=== PATIENT | female | born 1965 | race Caucasian/White ===

== ENCOUNTER 2016-07-09 20:16 | Emergency (ER) | payer BC ==
[~2016-07-09] VITALS: Ht 165.1 cm; Wt 150.0 kg
[~2016-07-09 20:16] MED LIST: ADVIN25/60 INH; CALC-335 PO; CETI10CA PO; CHOL2000 PO; CYAN100020 PO; CYM/30 PO; CYTM5 PO; DIPH50TA10 PO; DOCU-94 PO; DULO60CA44 PO; FLUT0.0529 NAE; GLUC500C67 PO; INSUINJ12 SC; LEVOIUD INT UTER; LIRA18IN SC; LISI20TA3 PO; NAPR220T40 PO; PANT40TA PO; PRED20TA PO; SUMA50TA15 PO; VSC/10 PO; XPNIN INH
[2016-07-09 20:40] VITALS: TEMP 37.4; Ht 165.1 cm; Wt 150.0 kg
[2016-07-09] MEDS ORDERED: AMLO2.5T PO (21:03)
[2016-07-09] MEDS ORDERED: INSU3INJ3 SQ (21:05)
[2016-07-09] MEDS ORDERED: ONDANSETRON INJ 2 MG/ML 2 ML VIAL IV STA (21:53)
[2016-07-09] MEDS ORDERED: MoRPHine SULFATE 4 MG/ML 1 ML CARP\\VIAL IV STA (21:53)
--- NOTE | 2016-07-09 22:15 | DIAGNOSTIC IMAGING REPORT ---
CHEST ONE VIEW PORTABLE CLINICAL HISTORY: Chest pain. Hypertension. COMPARISON STUDY: Chest radiograph February 17, 2016 per FINDINGS: Lung volumes are normal. There is no pneumothorax or pleural effusion. There is no consolidation or evidence of pulmonary edema. Borderline cardiomegaly is unchanged. IMPRESSION: No acute cardiopulmonary findings. Electronically signed by: Js Li M.D. 07/09/2016 10:13 PM Dictated Date/Time: 07/09/2016 10:13 PM
[2016-07-09 22:19] VITALS: O2SAT 94
[2016-07-09 22:38] LABS: BASO % 0.3 %; BASO ABS # 0.03 K/uL (0-0.2); COMPLETE YES; EOS % 1.5 %; HEMATOCRIT 39.9 % (37-47); IG% 0.1 %; LYMPH % 31.7 %; LYMPH ABS # 2.89 K/uL (1.2-3.4); MEAN CELL VOLUME 81.6 fL (80-100); MEAN CORPUSCULAR HGB CONC 33.1 g/dl (32-36); MEAN PLATELET VOLUME 9.7 fL (7.4-10.4); MONO % 6.7 %; NEUT % 59.7 %; PLATELET COUNT 408 K/uL (130-400); RED BLOOD COUNT 4.89 M/uL (4.2-5.4); WHITE BLOOD COUNT 9.12 K/uL (4.8-10.8)
[2016-07-09 22:59] LABS: ALT/SGPT 22 U/L (12-78); AST/SGOT 16 U/L (15-37); BLOOD UREA NITROGEN 10 mg/dl (7-18); BUN/CREATININE RATIO 11.3 (10-20); CALCIUM 8.8 mg/dl (8.5-10.1); CARBON DIOXIDE 28 mmol/L (21-32); CHLORIDE 107 mmol/L (98-107); CREATININE 0.87 mg/dl (0.60-1.20); GLUCOSE 137 mg/dl (70-99); SODIUM 143 mmol/L (136-145)
[2016-07-09 23:04] LABS: ALKALINE PHOSPHATASE 111 U/L (45-117); CKMB/CK RATIO 0.9 (0-3.0)
[2016-07-09] MEDS ORDERED: OPTIRAY 320 IV PRN (23:15)
[2016-07-10] MEDS ORDERED: LORAZEPAM 2 MG/ML 1 ML VIAL IV STA (00:09)
[2016-07-10] MEDS ORDERED: OXYCODONE IR HOME PACK PO ONE (01:30)
[2016-07-10 01:50] VITALS: BP 136/77; PULSE 96; O2SAT 93
--- NOTE | 2016-07-10 01:57 | EMERGENCY ROOM VISIT NOTE ---
History First contact with patient: 21:43 Chief Complaint: BACK PAIN Stated Complaint: HIGH BLOOD PRESSURE, BACK PAIN History of Present Illness The patient is a 51 year old female who presents to the Emergency Room with complaints of upper back pain that radiates around to her chest for the past day that started at 4:30pm today that is worse with movement and better with rest. She describes the pain as aching, ranging in severity 7 out of 10. No injury to the area. no current rash. Patient has had shingles to this same region before. Pain feels somewhat similar. No prior heart disease that she knows of. No stress test or echocardiogram. Patient has a history low back pain but nothing this. Patient denies abdominal pain, leg pain and numbness or tingling, recent travel, tobacco use, history PE, DVT, heart disease, control, hormone replacement, family history of blood clots, fever, chills, cough, congestion, IV drug abuse. Blood sugars normally run around 135 per patient. Her grandfather had heart disease in his late 60s. Review of Systems See HPI for pertinent positives & negatives. A total of 10 systems reviewed and were otherwise negative. Past Medical/Surgical History Medical Problems: (1) Asthma, Unspecified (2) Benign Hypertension (3) Diab Catia Wo Compl, Type Ii Or Unspec Type, Not Uncntrld (4) GERD (gastroesophageal reflux disease) Family History Cancer Diabetes mellitus Heart disease Hypertension Seizures Social History Smoking Status: Never Smoker Alcohol Use: none Drug Use: none Marital Status: Housing Status: lives with family Occupation Status: employed Current/Historical Medications Scheduled Amlodipine Besylate (Norvasc), 2.5 MG PO DAILY Calcium Citrate-Vitamin D (Citracal Petites/Vitamin), 1 TAB PO BID Cetirizine Hcl (Zyrtec Allergy), 10 MG PO HS Cholecalciferol (Vitamin D3), 2,000 UNITS PO DAILY Cyanocobalamin (Vitamin B12), 1,000 MCG PO BID Duloxetine Hcl (Cymbalta), 60 MG PO QAM Duloxetine Hcl (Cymbalta), 30 MG PO QAM Fluticasone Prop/Salmeterol (Advair Diskus 250/50 60 Dose), 1 PUFFS INH BID Fluticasone Propionate (Nasal) (Flonase), 1 SPRY HERRERA BID Glucosamine-Chondroitin (Cosamin Ds), 1 TAB PO QAM Insulin Detemir (Levemir Flextouch), 30 UNITS SQ HS Levonorgestrel (Iud) (Mirena), INT UTER UD Liothyronine Sodium (Liothyronine Sodium), 20 MCG PO QAM Liraglutide (Victoza), 1.8 ML SC HS Naproxen Sodium (Aleve), 3 TAB PO DAILY Pantoprazole Sodium (Protonix), 40 MG PO HS Solifenacin Succinate (Vesicare), 10 MG PO QAM Sumatriptan Succinate (Imitrex), 50 MG PO PRN Scheduled PRN Diphenhydramine Hcl (Sleep) (Diphenhydramine Hcl), 1 DOSE PO UD PRN for ALLERGIC REACTION Docusate Sodium (Colace), 200 MG PO BID PRN for Constipation Levalbuterol Tartrate (Xopenex Hfa), 1 PUFF INH DAILY PRN for Shortness of Breath Allergies Coded Allergies: Lisinopril (Verified Allergy, Severe, ANGIOEDEMA, 07/09/16) Amoxicillin (Verified Allergy, Intermediate, HIVES, 08/21/15) Metformin (Verified Allergy, Intermediate, HIVES, 08/21/15) Sulfa Antibiotics (Unverified Allergy, Unknown, HIVES, 02/17/16) Physical Exam Vital Signs Date Time Temp Pulse Resp B/P Pulse Ox O2 Delivery O2 Flow Rate FiO2 07/10/16 01:07 92 18 135/80 93 Room Air 07/10/16 00:17 97 18 125/73 96 Room Air 07/09/16 23:43 96 18 125/74 95 Room Air 07/09/16 22:35 92 18 139/75 93 07/09/16 22:20 89 18 148/82 93 Room Air 07/09/16 22:19 94 Room Air 07/09/16 22:19 93 Room Air 07/09/16 21:37 93 07/09/16 21:26 98 20 165/99 96 Room Air 07/09/16 20:40 37.4 108 18 137/75 94 Room Air Physical Exam VITALS: Vitals are noted on the nurse's note and reviewed by myself. Vital signs stable. GENERAL: Pleasant female anxious-appearing, in no acute distress, nondiaphoretic , well-developed well-nourished. SKIN: The skin was without rashes, erythema, edema, or bruising. There is no tenting of the skin. Capillary reflex less than 2 seconds. HEAD: Normocephalic atraumatic. EARS: External auditory canals clear, tympanic membranes pearly waller without erythema or effusion bilaterally. EYES: Pupils equal round and reactive to light and accommodation. Conjunctivae without injection, sclerae without icterus. Extraocular movements intact. NOSE: Patent, turbinates without inflammation or discharge. MOUTH: Mucous membranes moist. Pharynx without erythema or exudate. Uvula midline. Airway patent. Tongue does not deviate. NECK: Supple without nuchal rigidity. No lymphadenopathy. No thyromegaly. Cervical spine is nontender. No JVD. HEART: Regular rate and rhythm without murmurs gallops or rubs. LUNGS: Clear to auscultation bilaterally without wheezes, rales or rhonchi. No dullness to percussion. No retractions or accessory muscle use. ABDOMEN: Positive bowel sounds x 4. Normal tympanic percussion. Soft, protuberant, obese, nontender, without masses or organomegaly. Sawant sign negative. No guarding or rebound tenderness. MUSCULOSKELETAL: No muscle atrophy, erythema, noted. No calf tenderness. Thoracic tenderness over T8 and 9 easily reproducing symptoms without rash. No lumbar tenderness. NEURO: Patient was alert and oriented to person place and time. Normal sensation to light and sharp touch. No focal neurological deficits. Medical Decision & Procedures Laboratory Results 07/09/16 22:10 Red Blood Count 4.89, Mean Corpuscular Volume 81.6, Mean Corpuscular Hemoglobin 27.0, Mean Corpuscular Hemoglobin Concent 33.1, Mean Platelet Volume 9.7, Neutrophils (%) (Auto) 59.7, Lymphocytes (%) (Auto) 31.7, Monocytes (%) (Auto) 6.7, Eosinophils (%) (Auto) 1.5, Basophils (%) (Auto) 0.3, Neutrophils # (Auto) 5.44, Lymphocytes # (Auto) 2.89, Monocytes # (Auto) 0.61, Eosinophils # (Auto) 0.14, Basophils # (Auto) 0.03 07/09/16 22:10 Test 07/09/16 22:10 White Blood Count 9.12 K/uL (4.8-10.8) Red Blood Count 4.89 M/uL (4.2-5.4) Hemoglobin 13.2 g/dL (12.0-16.0) Hematocrit 39.9 % (37-47) Mean Corpuscular Volume 81.6 fL (80-100) Mean Corpuscular Hemoglobin 27.0 pg (25-34) Mean Corpuscular Hemoglobin Concent 33.1 g/dl (32-36) Platelet Count 408 K/uL (130-400) Mean Platelet Volume 9.7 fL (7.4-10.4) Neutrophils (%) (Auto) 59.7 % Lymphocytes (%) (Auto) 31.7 % Monocytes (%) (Auto) 6.7 % Eosinophils (%) (Auto) 1.5 % Basophils (%) (Auto) 0.3 % Neutrophils # (Auto) 5.44 K/uL (1.4-6.5) Lymphocytes # (Auto) 2.89 K/uL (1.2-3.4) Monocytes # (Auto) 0.61 K/uL (0.11-0.59) Eosinophils # (Auto) 0.14 K/uL (0-0.5) Basophils # (Auto) 0.03 K/uL (0-0.2) RDW Standard Deviation 48.0 fL (36.4-46.3) RDW Coefficient of Variation 15.9 % (11.5-14.5) Immature Granulocyte % (Auto) 0.1 % Immature Granulocyte # (Auto) 0.01 K/uL (0.00-0.02) D-Dimer 650 ug/L FEU (0-500) Anion Gap 8.0 mmol/L (3-11) Est Creatinine Clear Calc Drug Dose 113.8 ml/min Estimated GFR () 89.4 Estimated GFR (Non- 77.1 BUN/Creatinine Ratio 11.3 (10-20) Calcium Level 8.8 mg/dl (8.5-10.1) Total Bilirubin 0.4 mg/dl (0.2-1) Direct Bilirubin < 0.1 mg/dl (0-0.2) Aspartate Amino Transf (AST/SGOT) 16 U/L (15-37) Alanine Aminotransferase (ALT/SGPT) 22 U/L (12-78) Alkaline Phosphatase 111 U/L (45-117) Total Creatine Kinase 57 U/L (26-192) Creatine Kinase MB 0.5 ng/ml (0.5-3.6) Creatine Kinase MB Ratio 0.9 (0-3.0) Troponin I < 0.015 ng/ml (0-0.045) Total Protein 7.5 gm/dl (6.4-8.2) Albumin 3.5 gm/dl (3.4-5.0) Lipase 257 U/L (73-393) Medications Administered Medications (Trade) Dose Ordered Sig/Alyse Route Start Time Stop Time Status Last Admin Dose Admin Morphine Sulfate (MoRPHine SULFATE INJ) 4 mg NOW STAT IV 07/09/16 21:53 07/09/16 21:55 DC 07/09/16 22:22 4 MG Ondansetron HCl (Zofran Inj) 4 mg NOW STAT IV 07/09/16 21:53 07/09/16 21:55 DC 07/09/16 22:21 4 MG Lorazepam (Ativan Inj) 1 mg NOW STAT IV 07/10/16 00:09 07/10/16 00:10 DC 07/10/16 00:19 1 MG ED Course Prior records/ancillary studies reviewed. Triage Nursing notes reviewed. Additional history obtained from family. The patient's history was concerning for back/chest pain. Differential diagnosis: Etiologies such as cardiac ischemia, shingles, back pain, discitis, cancer, aortic dissection, pulmonary embolism, pneumonia, pneumothorax, musculoskeletal , infections, pericarditis, myocarditis, esophageal rupture, gastrointestinal, as well as others were entertained. Physical examination: As above. ER treatment provided: Morphine, Zofran, IV fluids On reassessment the patient felt better. Diagnostic interpretation by me: The electrocardiogram was negative for pathologic change. Normal sinus, normal intervals, no acute ST-T wave changes. Impression normal sinus rhythm interpreted by myself The labs revealed 2 negative troponins 2 hours apart. Mildly elevated d-dimer Imaging studies: CTA CHEST: No evidence of pulmonary embolism. No aortic aneurysm or dissection. Lungs are clear aside from mild platelike atelectasis in lingula and right middle lobe Post cholecystectomy. Incompletely imaged right renal hypodensity, likely cyst. CT T SPINE: No fracture or subluxation. No evidence of canal or foraminal stenosis. Findings consistent with hemangioma in L1 vertebral body Radiologist: Mateo Rojas MD Exam and history seem consistent with back pain most likely muscular in nature. Patient had 2 troponins 2 hours apart that were negative. Normal EKG. Negative CTA. Patient was offered admission for cardiac rule out and declined. I feel this is reasonable. She is strongly encouraged to the family care doctor for a stress test within 2 weeks. She was also informed if she develops the shingles rash to see the family care Dr. for medications if needed. She is advised to monitor her blood sugars. She was advised to return to the ER immediately for chest pain, difficulty breathing, worsening signs or symptoms or as needed. By the evaluation outlined above emergent etiologies such as cardiac ischemia, aortic dissection, pulmonary embolism, pneumonia, pneumothorax, infections, pericarditis, myocarditis, gastrointestinal, as well as others were deemed relatively unlikely. The pt informed about the findings as listed above. All questions were answered and pleased with the treatment. Return instructions were outlined and the patient was discharged in stable condition. Referral: The patient was referred back to primary care physician for follow-up in 2 to 3 days for a recheck of the current condition. case reviewed with my Attending Medical Decision As above Impression Primary Impression: Mid-back pain, acute Departure Information Dispostion Home / Self-Care Condition GOOD Forms HOME CARE DOCUMENTATION FORM, Work Instructions, Return To Work: 1 day IMPORTANT VISIT INFORMATION Patient Instructions Chest Pain - [facility], Back Pain - [facility], [facility] Additional Instructions Recommend outpatient stress test within 2 weeks. If you develop a shingles rash, notify your family care doctor. Ibuprofen(Motrin, Advil) may be used for fever or pain. Use 600mg every six hours as needed. Take with food. Avoid using more than 2400mg in a 24 hour period. Do not use 2400mg per day for more than three consecutive days without physician direction. Prolonged inappropriate use can lead to stomach upset or ulcers. (AND/OR) Acetaminophen(Tylenol) may be used for fever or pain. Use 1000mg every six hours as needed. Avoid using more than 3000mg in a 24 hour period. Rest and drink plenty of fluids as tolerated. Continue current medications. Avoid strenuous activities and anything that worsens your pain. Resume normal activities once your symptoms resolve. Return to the ER immediately for worsening or persistent chest pain, abdominal pain, vomiting, fevers, chest pains, difficulty breathing, worsening of your condition, or as needed. Follow up with your primary physician in 2-3 days for a recheck of your current condition. Work Instructions Return To Work: 1 day
--- NOTE | 2016-07-10 07:20 | DIAGNOSTIC IMAGING REPORT ---
THORACIC SPINE CT CT DOSE: 0.00 mGy.cm HISTORY: severe mid back pain and sob, +ddimer TECHNIQUE: Multiaxial CT images of the thoracic spine were performed and reformatted in the sagittal and coronal plane without the use of contrast. COMPARISON: None. FINDINGS: No fractures. No subluxation. Paraspinal soft tissues are unremarkable. Disc spaces are preserved for age. No central canal or neural foraminal narrowing. IMPRESSION: No fractures within the thoracic spine. Electronically signed by: Mesfin Pearce M.D. 07/10/2016 7:18 AM Dictated Date/Time: 07/10/2016 7:16 AM
--- NOTE | 2016-07-10 07:52 | DIAGNOSTIC IMAGING REPORT ---
CT ANGIOGRAM OF THE CHEST CLINICAL HISTORY: Atypical chest pain. Dyspnea. COMPARISON STUDY: Chest x-ray dated 07/09/2016. TECHNIQUE: Following the IV administration of 103 cc of Optiray 320, CT angiogram of the chest was performed from the upper abdomen to the thoracic inlet utilizing the pulmonary embolus protocol. Images are reviewed in the axial, sagittal, and coronal planes. 3-D MIPS images are created and assessed. IV contrast was administered without complication. The examination is degraded by large body habitus, and by streak artifact from the body wall abutting the CT gantry. CT DOSE: 856.19 mGy.cm FINDINGS: Thyroid: Mildly atrophic. Thoracic aorta: The thoracic aorta is normal in caliber and demonstrates standard 3-vessel arch anatomy. No dissection is seen. Pulmonary vasculature: The pulmonary trunk is normal in caliber. There are no filling defects identified in main, lobar, or segmental pulmonary branches to suggest pulmonary embolus. Heart: The heart is mildly enlarged and without pericardial effusion. Lungs and pleural spaces: The lungs and pleural spaces are clear. The trachea and central airways are patent. Mediastinum: There is no mediastinal lymphadenopathy. Inés: Clear. Axillae: There is no axillary lymphadenopathy. Upper abdomen: Cholecystectomy clips are noted. There is a small hiatal hernia. The liver appears steatotic. A right renal cyst is noted. Skeletal structures: No lytic or blastic bony lesions are seen. A hemangioma is noted in the body of L1. Soft tissues: There is a 1.5 cm sebaceous cyst present in the right upper back. IMPRESSION: 1. There is no evidence of pulmonary embolus in the main, lobar, or segmental pulmonary arteries. 2. The lungs are clear. 3. Mild cardiac enlargement. 4. Hepatic steatosis. Electronically signed by: Tyler Wilkins M.D. 07/10/2016 7:51 AM Dictated Date/Time: 07/10/2016 7:47 AM
== END 2016-07-10 01:50 | disposition home or self-care (01) ==
LOC: C.EDB 20:17
DX: M54.9 Dorsalgia, unspecified (principal); J45.909 Unspecified asthma, uncomplicated; I10 Essential (primary) hypertension; E11.9 Type 2 diabetes mellitus without complications; K21.9 Gastro-esophageal reflux disease without esophagitis

== ENCOUNTER → 2016-08-22 | Outpatient (CLI) | payer BC ==
[~2016-08-22] MED LIST changes: +AMLO2.5T PO; +INSU3INJ3 SQ; -INSUINJ12 SC; -LISI20TA3 PO; -PRED20TA PO
--- NOTE | 2016-08-22 18:58 | DIAGNOSTIC IMAGING REPORT ---
L-SPINE MIN 4 VIEWS ROUTINE CLINICAL HISTORY: Lower back pain. COMPARISON: Lumbar spine radiographs July 09, 2013. FINDINGS: There are cholecystectomy clips. Alignment of lumbar spine is anatomic. Vertebral body heights are maintained. There is no fracture or suspicious lesion. There is mild disc space narrowing at L5-S1. There is mild endplate osteophytosis and facet arthrosis. IMPRESSION: 1. No acute lumbar spine fracture or subluxation. 2. Mild multilevel degenerative disc disease and facet arthrosis of the lumbar spine. Electronically signed by: Js Li M.D. 08/22/2016 6:56 PM Dictated Date/Time: 08/22/2016 6:55 PM
--- NOTE | 2016-08-22 18:59 | DIAGNOSTIC IMAGING REPORT ---
RENAL ULTRASOUND CLINICAL HISTORY: Lower back pain. COMPARISON STUDY: CT of the abdomen and pelvis August 04, 2015. TECHNIQUE: Sonography of the kidneys and the urinary bladder was performed. FINDINGS: This exam is compromised by suboptimal penetration. The right kidney measures 10.9 x 5.2 x 5.2 cm and the left kidney measures 10 x 5.2 x 5 cm. There is no hydronephrosis. No calculi or masses are identified although sensitivity is diminished on this exam. The bladder was unremarkable. Both ureteral jets were identified. IMPRESSION: 1. Unremarkable sonographic appearance of the kidneys. No hydronephrosis. 2. Study compromised by suboptimal penetration. Electronically signed by: Js Li M.D. 08/22/2016 6:58 PM Dictated Date/Time: 08/22/2016 6:56 PM
--- NOTE | 2016-08-22 19:00 | DIAGNOSTIC IMAGING REPORT ---
SI JOINTS 3 OR MORE VIEWS CLINICAL HISTORY: Low back pain. COMPARISON STUDY: CT of the abdomen and pelvis August 04, 2015. FINDINGS: The sacroiliac joints are intact without evidence for ankylosis. There is no fracture or suspicious lesion within visualized skeletal structures. An intrauterine device is incidentally noted. There is mild arthritis of the sacroiliac joints. 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 Electronically signed by: Js Li M.D. 08/22/2016 6:58 PM Dictated Date/Time: 08/22/2016 6:58 PM
[2016-08-22 19:14] LABS: MEAN CELL VOLUME 82.7 fL (80-100); MEAN CORPUSCULAR HGB CONC 32.6 g/dl (32-36); MEAN PLATELET VOLUME 9.8 fL (7.4-10.4); PLATELET COUNT 372 K/uL (130-400); RED BLOOD COUNT 5.08 M/uL (4.2-5.4); WHITE BLOOD COUNT 11.06 K/uL (4.8-10.8)
[2016-08-22 19:31] LABS: ALT/SGPT 26 U/L (12-78); BLOOD UREA NITROGEN 16 mg/dl (7-18); CALCIUM 9.1 mg/dl (8.5-10.1); CARBON DIOXIDE 29 mmol/L (21-32); CHLORIDE 104 mmol/L (98-107); CREATININE 0.91 mg/dl (0.60-1.20); GLUCOSE 218 mg/dl (70-99); POTASSIUM 3.7 mmol/L (3.5-5.1); SODIUM 140 mmol/L (136-145)
[2016-08-22 19:34] LABS: ALB/GLOB RATIO 0.9 (0.9-2); ALKALINE PHOSPHATASE 115 U/L (45-117); AST/SGOT 18 U/L (15-37)
== END | disposition home or self-care (01) ==
LOC: C.ULTR 17:53
PROVIDERS: ATTEND Family Medicine
DX: M54.5 Low back pain (principal); Z87.442 Personal history of urinary calculi; M51.36 Other intervertebral disc degeneration, lumbar region

== ENCOUNTER 2017-05-03 14:57 | Emergency (ER) | payer BC ==
[~2017-05-03] VITALS: Ht 165.1 cm; Wt 147.7 kg
[2017-05-03 15:01] VITALS: TEMP 37; Ht 165.1 cm; Wt 147.7 kg
[2017-05-03] MEDS ORDERED: KETOROLAC TROMETHAMINE 30 MG/ML VIAL IV STA (15:35)
[2017-05-03 15:37] VITALS: O2SAT 96
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
[2017-05-03 16:29] LABS: BASO % 0.2 %; BASO ABS # 0.02 K/uL (0-0.2); COMPLETE YES; EOS % 0.5 %; HEMATOCRIT 40.9 % (37-47); IG% 0.2 %; LYMPH % 22.5 %; LYMPH ABS # 1.93 K/uL (1.2-3.4); MEAN CELL VOLUME 87.4 fL (80-100); MEAN CORPUSCULAR HEMOGLOBIN 28.6 pg (25-34); MEAN CORPUSCULAR HGB CONC 32.8 g/dl (32-36); MEAN PLATELET VOLUME 9.4 fL (7.4-10.4); MONO % 6.4 %; NEUT % 70.2 %; PLATELET COUNT 324 K/uL (130-400); RED BLOOD COUNT 4.68 M/uL (4.2-5.4); WHITE BLOOD COUNT 8.57 K/uL (4.8-10.8)
--- NOTE | 2017-05-03 16:43 | DIAGNOSTIC IMAGING REPORT ---
CHEST ONE VIEW PORTABLE CLINICAL HISTORY: Asthma. COMPARISON STUDY: Chest radiograph July 09, [address] July 10, 2016. FINDINGS: Lung volumes are normal. No pneumothorax or pleural effusion is present. There is no consolidation or evidence of pulmonary edema. Cardiomediastinal silhouette is stable. Appearance of the chest is unchanged. IMPRESSION: No acute cardiopulmonary findings. Electronically signed by: Js Li M.D. 05/03/2017 4:42 PM Dictated Date/Time: 05/03/2017 4:41 PM
[2017-05-03 16:47] LABS: ALT/SGPT 22 U/L (12-78); AST/SGOT 13 U/L (15-37); BLOOD UREA NITROGEN 9 mg/dl (7-18); BUN/CREATININE RATIO 11.2 (10-20); CALCIUM 8.4 mg/dl (8.5-10.1); CARBON DIOXIDE 28 mmol/L (21-32); CHLORIDE 107 mmol/L (98-107); CREATININE 0.76 mg/dl (0.60-1.20); GLUCOSE 159 mg/dl (70-99); POTASSIUM 3.7 mmol/L (3.5-5.1); SODIUM 139 mmol/L (136-145)
[2017-05-03 16:50] LABS: ALKALINE PHOSPHATASE 106 U/L (45-117)
[2017-05-03] MEDS ORDERED: FLUT0.15 NAE (17:17)
[2017-05-03] MEDS ORDERED: LEVA45AE INH (17:18)
[2017-05-03 17:43] VITALS: BP 148/80
[2017-05-03 17:59] VITALS: PULSE 90; O2SAT 96
== END 2017-05-03 18:00 | disposition home or self-care (01) ==
LOC: C.EDB 14:58 → C.EDC 18:00
DX: T59.891A Toxic effect of other specified gases, fumes and vapors, accidental (unintentional), initial encounter (principal); J45.909 Unspecified asthma, uncomplicated; I10 Essential (primary) hypertension; E11.9 Type 2 diabetes mellitus without complications; E07.9 Disorder of thyroid, unspecified; Z97.5 Presence of (intrauterine) contraceptive device

== ENCOUNTER → 2017-07-09 | Outpatient (CLI) | payer BC ==
[~2017-07-09] MED LIST changes: -FLUT0.0529 NAE; +FLUT0.15 NAE; +LEVA45AE INH; +LEVO1IUD2 INT UTER; -LEVOIUD INT UTER; -XPNIN INH
== END | disposition home or self-care (01) ==
LOC: C.RDSM 14:00
PROVIDERS: ATTEND Physical Medicine & Rehabilitation Sports Medicine
DX: Z96.659 Presence of unspecified artificial knee joint (principal); M17.10 Unilateral primary osteoarthritis, unspecified knee; M25.561 Pain in right knee; M25.562 Pain in left knee

== ENCOUNTER → 2017-08-25 | Outpatient (CLI) | payer BC ==
[~2017-08-25] MED LIST changes: +AMLO5TAB4 PO; +ONDA4TAB10 SL
--- NOTE | 2017-08-26 07:47 | MAMMOGRAPHY REPORT ---
BILATERAL DIGITAL SCREENING MAMMOGRAM TOMOSYNTHESIS WITH CAD: 08/25/2017 CLINICAL HISTORY: Routine screening. Patient has no complaints. TECHNIQUE: Breast tomosynthesis in addition to standard 2D mammography was performed. Current study was also evaluated with a Computer Aided Detection (CAD) system. COMPARISON: No prior exams were available for comparison. BREAST COMPOSITION: There are scattered areas of fibroglandular density in both breasts. FINDINGS: There are multiple bilateral circumscribed subcentimeter masses scattered in the breasts, w hich is a typically benign mammographic pattern. No suspicious spiculated or irregular mass, archite ctural distortion, asymmetry or cluster of microcalcifications is seen. IMPRESSION: ACR BI-RADS CATEGORY 1: NEGATIVE There is no mammographic evidence of malignancy. Prior outside mammograms are currently being reques loretta and if obtained they will be reviewed, compared to the current exam to assess for any more subtle changes, and an addendum will be made to this report. Otherwise, a 1 year screening mammogram is re commended. The patient will receive written notification of the results. Approximately 10% of breast cancers are not detected with mammography. A negative mammographic report should not delay biopsy if a clinically suggestive mass is present. Marichuy Houser M.D. ay/:08/25/2017 15:01:35 Ehr Trainer: Nelly Beckman, [facility] letter sent: Normal 1/2 BI-RADS Code: ACR BI-RADS Category 1: Negative
== END | disposition home or self-care (01) ==
LOC: C.MAMM 13:53
PROVIDERS: ATTEND Family Medicine
DX: Z12.31 Encounter for screening mammogram for malignant neoplasm of breast (principal)

== ENCOUNTER 2017-08-31 19:40 | Emergency (ER) | payer BC ==
[~2017-08-31 19:40] MED LIST changes: -AMLO5TAB4 PO; -ONDA4TAB10 SL
[2017-08-31 19:48] VITALS: TEMP 36.5; Ht 165.1 cm
[2017-08-31] MEDS ORDERED: ONDANSETRON INJ 2 MG/ML 2 ML VIAL IV STA ×2 (20:09→21:59)
[2017-08-31] MEDS ORDERED: SODIUM CHLORIDE 0.9% 1000ML 1,000 ML IV STA ×2 (20:09→21:07)
[2017-08-31] MEDS ORDERED: SODIUM CHLORIDE 0.9% 1000ML 1,000 ML IV ONE (20:09)
[2017-08-31 20:22] LABS: BASO % 0.1 %; BASO ABS # 0.01 K/uL (0-0.2); EOS % 0.2 %; EOS ABS # 0.03 K/uL (0-0.5); HEMATOCRIT 46.9 % (37-47); HEMOGLOBIN 15.8 g/dL (12.0-16.0); IG# 0.03 K/uL (0.00-0.02); LYMPH % 5.9 %; LYMPH ABS # 0.85 K/uL (1.2-3.4); MEAN CELL VOLUME 86.4 fL (80-100); MEAN CORPUSCULAR HEMOGLOBIN 29.1 pg (25-34); MEAN CORPUSCULAR HGB CONC 33.7 g/dl (32-36); MEAN PLATELET VOLUME 9.9 fL (7.4-10.4); MONO % 3.3 %; MONO ABS # 0.48 K/uL (0.11-0.59); NEUT % 90.3 %; NEUT ABS # 13.04 K/uL (1.4-6.5); PLATELET COUNT 363 K/uL (130-400); RED CELL DISTRIBUTION WIDTH CV 15.2 % (11.5-14.5); RED CELL DISTRIBUTION WIDTH SD 48.7 fL (36.4-46.3); WHITE BLOOD COUNT 14.44 K/uL (4.8-10.8)
[2017-08-31] MEDS ORDERED: AMLO5TAB4 PO (20:25)
[2017-08-31 20:38] LABS: ALBUMIN 3.7 gm/dl (3.4-5.0); ALT/SGPT 33 U/L (12-78); BLOOD UREA NITROGEN 15 mg/dl (7-18); CALCIUM 8.9 mg/dl (8.5-10.1); CARBON DIOXIDE 20 mmol/L (21-32); CREATININE 0.81 mg/dl (0.60-1.20); GLUCOSE 191 mg/dl (70-99); LIPASE 139 U/L (73-393); POTASSIUM 3.9 mmol/L (3.5-5.1); SODIUM 139 mmol/L (136-145)
--- NOTE | 2017-08-31 20:38 | DIAGNOSTIC IMAGING REPORT ---
CHEST ONE VIEW PORTABLE CLINICAL HISTORY: Atypical chest pain COMPARISON STUDY: 05/03/2017 FINDINGS: The heart is mildly enlarged. There is mild interstitial prominence without evidence of overt failure. There is no focal pulmonary consolidation. There are no pleural effusions.[ IMPRESSION: Mild cardiomegaly. No acute findings. Electronically signed by: Chadwick Metz M.D. 08/31/2017 8:37 PM Dictated Date/Time: 08/31/2017 8:36 PM
[2017-08-31 20:41] LABS: ALKALINE PHOSPHATASE 154 U/L (45-117); AST/SGOT 28 U/L (15-37); TOTAL PROTEIN 7.7 gm/dl (6.4-8.2)
[2017-08-31 21:26] VITALS: PULSE 88; O2SAT 98
[2017-08-31] MEDS ORDERED: ONDA4TAB10 SL (21:56)
[2017-08-31] MEDS ORDERED: ONDANSETRON HOME PACK 4MG OD TAB PO ONE (22:00)
[2017-08-31 22:17] VITALS: BP 161/97
--- NOTE | 2017-09-01 00:57 | EMERGENCY ROOM VISIT NOTE ---
History Report prepared by Aidan: Tyson Gant Under the Supervision of: Dr. Angus Sharma M.D. First contact with patient: 19:52 Chief Complaint: VOMITING Stated Complaint: VOMITING SEVEN + HOURS Nursing Triage Summary: nausea and vomitting since noon, states she basically has not stopped vomitting or dry heaving History of Present Illness The patient is a 52 year old female who presents to the Emergency Room with complaints of persistent nausea and vomiting that began this morning at 1130, 9 hours ago. The patient states that she suddenly felt nauseated this morning after eating breakfast. She admits that her and her had apple pie for breakfast, but her is feeling fine. She notes that after her nausea onset she vomited every 30-45 minutes, there was never any blood in the emesis. She is now dry-heaving as she states she does not have anything left to throw up. She has been having bowel movements today that are getting progressively softer. She has not really had any diarrhea yet. The patient denies any actual abdominal pain, or shortness of breath. Source of History: patient Onset: 9 hours ago Position: abdomen Symptom Intensity: vomiting every 30-45 minutes Quality: other (Nausea and vomiting) Timing: other (Persistent) Associated Symptoms: No SOB, No abdominal pain, No melena, No diarrhea Review of Systems See HPI for pertinent positives & negatives. A total of 10 systems reviewed and were otherwise negative. Past Medical & Surgical Medical Problems: (1) Asthma, Unspecified (2) Benign Hypertension (3) Depression (4) Diab Catia Wo Compl, Type Ii Or Unspec Type, Not Uncntrld (5) GERD (gastroesophageal reflux disease) (6) Migraine (7) Overactive bladder (8) PCOS (polycystic ovarian syndrome) (9) Thyroid disorder Surgical Problems: (1) History of appendectomy (2) History of cholecystectomy Old medical records were reviewed. Nurse's notes were reviewed and I agree with. Family History Cancer Diabetes mellitus Heart disease Hypertension Seizures Social History Smoking Status: Never Smoker Alcohol Use: none Drug Use: none Marital Status: Housing Status: lives with family Occupation Status: employed Current/Historical Medications Scheduled Amlodipine Besylate (Norvasc), 5 MG PO DAILY Calcium Citrate-Vitamin D (Citracal Petites/Vitamin), 1 TAB PO BID Cholecalciferol (Vitamin D3), 2,000 UNITS PO DAILY Cyanocobalamin (Vitamin B12), 1,000 MCG PO BID Duloxetine Hcl (Cymbalta), 60 MG PO QAM Duloxetine Hcl (Cymbalta), 30 MG PO QAM Fluticasone Prop/Salmeterol (Advair Diskus 250/50 60 Dose), 1 PUFFS INH BID Glucosamine-Chondroitin (Cosamin Ds), 1 TAB PO QAM Insulin Detemir (Levemir Flextouch), 40 UNITS SQ HS Levalbuterol Tartrate (Levalbuterol Tartrate Hfa), 1 PUFF INH DAILY Levonorgestrel (Iud) (Mirena), INT UTER UD Liothyronine Sodium (Liothyronine Sodium), 20 MCG PO QAM Liraglutide (Victoza), 1.8 ML SC HS Naproxen Sodium (Aleve), 3 TAB PO BID Ondasetron Odt (Zofran Odt), 4 MG SL Q6H Pantoprazole Sodium (Protonix), 40 MG PO HS Solifenacin Succinate (Vesicare), 10 MG PO QAM Sumatriptan Succinate (Imitrex), 50 MG PO PRN Scheduled PRN Diphenhydramine Hcl (Sleep) (Diphenhydramine Hcl), 1 DOSE PO UD PRN for ALLERGIC REACTION Docusate Sodium (Colace), 200 MG PO BID PRN for Constipation Allergies Coded Allergies: Lisinopril (Verified Allergy, Severe, ANGIOEDEMA, 08/31/17) Amoxicillin (Verified Allergy, Intermediate, HIVES, 08/31/17) Metformin (Verified Allergy, Intermediate, HIVES, 08/31/17) Sulfa Antibiotics (Unverified Allergy, Unknown, HIVES, 08/31/17) Physical Exam Vital Signs Date Time Temp Pulse Resp B/P (MAP) Pulse Ox O2 Delivery O2 Flow Rate FiO2 08/31/17 22:17 161/97 08/31/17 21:26 88 18 191/85 98 Room Air 08/31/17 19:48 36.5 109 20 140/92 96 Room Air Physical Exam General: Non-ill appearing middle age female, holding emesis bag, otherwise in no acute distress. HEENT: Normal cephalic atraumatic. Pupils are equal round and reactive to light. Extraocular movements are intact. Oropharynx is pink with moist mucous membranes. No swelling of the mouth lips or tongue. Neck: Supple with a midline trachea. No meningeal signs or stiffness, no JVD or bruits. No Stridor. Chest: Clear to auscultation bilaterally. No wheezes or rhonchi. No increased work of breathing. Heart: regular rate and rhythm. Abdomen: Soft nontender, nondistended without rebound guarding or rigidity. Extremities: No cyanosis clubbing or edema. No calf tenderness or assymetry Spine/Back. Non tender to palpation. No CVA tenderness Skin: Good turgor without rashes. Neurologic exam: Cranial nerves two through 12 are intact. Motor and sensation are intact and symmetrical throughout. Medical Decision & Procedures ER Provider Diagnostic Interpretation: Radiology results as stated below per my review and radiologist interpretation: CHEST ONE VIEW PORTABLE CLINICAL HISTORY: Atypical chest pain COMPARISON STUDY: 05/03/2017 FINDINGS: The heart is mildly enlarged. There is mild interstitial prominence without evidence of overt failure. There is no focal pulmonary consolidation. There are no pleural effusions.[ IMPRESSION: Mild cardiomegaly. No acute findings. Electronically signed by: Chadwick Metz M.D. 08/31/2017 8:37 PM Dictated Date/Time: 08/31/2017 8:36 PM Laboratory Results 08/31/17 20:00 Red Blood Count 5.43, Mean Corpuscular Volume 86.4, Mean Corpuscular Hemoglobin 29.1, Mean Corpuscular Hemoglobin Concent 33.7, Mean Platelet Volume 9.9, Neutrophils (%) (Auto) 90.3, Lymphocytes (%) (Auto) 5.9, Monocytes (%) (Auto) 3.3, Eosinophils (%) (Auto) 0.2, Basophils (%) (Auto) 0.1, Neutrophils # (Auto) 13.04, Lymphocytes # (Auto) 0.85, Monocytes # (Auto) 0.48, Eosinophils # (Auto) 0.03, Basophils # (Auto) 0.01 08/31/17 20:00 Test 08/31/17 20:00 White Blood Count 14.44 K/uL (4.8-10.8) Red Blood Count 5.43 M/uL (4.2-5.4) Hemoglobin 15.8 g/dL (12.0-16.0) Hematocrit 46.9 % (37-47) Mean Corpuscular Volume 86.4 fL (80-100) Mean Corpuscular Hemoglobin 29.1 pg (25-34) Mean Corpuscular Hemoglobin Concent 33.7 g/dl (32-36) Platelet Count 363 K/uL (130-400) Mean Platelet Volume 9.9 fL (7.4-10.4) Neutrophils (%) (Auto) 90.3 % Lymphocytes (%) (Auto) 5.9 % Monocytes (%) (Auto) 3.3 % Eosinophils (%) (Auto) 0.2 % Basophils (%) (Auto) 0.1 % Neutrophils # (Auto) 13.04 K/uL (1.4-6.5) Lymphocytes # (Auto) 0.85 K/uL (1.2-3.4) Monocytes # (Auto) 0.48 K/uL (0.11-0.59) Eosinophils # (Auto) 0.03 K/uL (0-0.5) Basophils # (Auto) 0.01 K/uL (0-0.2) RDW Standard Deviation 48.7 fL (36.4-46.3) RDW Coefficient of Variation 15.2 % (11.5-14.5) Immature Granulocyte % (Auto) 0.2 % Immature Granulocyte # (Auto) 0.03 K/uL (0.00-0.02) Anion Gap 12.0 mmol/L (3-11) Estimated GFR () 96.8 Estimated GFR (Non- 83.5 BUN/Creatinine Ratio 17.9 (10-20) Calcium Level 8.9 mg/dl (8.5-10.1) Total Bilirubin 0.7 mg/dl (0.2-1) Direct Bilirubin 0.1 mg/dl (0-0.2) Aspartate Amino Transf (AST/SGOT) 28 U/L (15-37) Alanine Aminotransferase (ALT/SGPT) 33 U/L (12-78) Alkaline Phosphatase 154 U/L (45-117) Total Protein 7.7 gm/dl (6.4-8.2) Albumin 3.7 gm/dl (3.4-5.0) Lipase 139 U/L (73-393) Human Chorionic Gonadotropin, Qual NEG (NEG) Laboratory studies as stated above per my review. Medications Administered Medications (Trade) Dose Ordered Sig/Alyse Route Start Time Stop Time Status Last Admin Dose Admin Sodium Chloride 1,000 ml @ 999 mls/hr Q1H1M STAT IV 08/31/17 20:09 08/31/17 21:09 DC 08/31/17 20:19 999 MLS/HR Sodium Chloride 1,000 ml @ 150 mls/hr Q6H40M ONCE IV 08/31/17 20:09 08/31/17 22:35 DC 08/31/17 20:09 150 MLS/HR Ondansetron HCl (Zofran Inj) 4 mg NOW STAT IV 08/31/17 20:09 08/31/17 20:10 DC 08/31/17 20:19 4 MG Sodium Chloride 1,000 ml @ 999 mls/hr Q1H1M STAT IV 08/31/17 21:07 08/31/17 22:07 DC 08/31/17 21:07 999 MLS/HR Ondansetron HCl (ZOFRAN ODT 4MG Home Pack) 1 homepack UD ONCE PO 08/31/17 22:00 08/31/17 22:01 DC 08/31/17 22:03 1 HOMEPACK Ondansetron HCl (Zofran Inj) 4 mg NOW STAT IV 08/31/17 21:59 08/31/17 22:00 DC 08/31/17 22:03 4 MG ECG Per My Interpretation Indication: vomiting Rate (beats per minute): 92 Rhythm: normal sinus Findings: other (No TIAGO/STD, no PVCs) Comparison ECG Date: 05/03/2017 Change: no significant change ED Course 2002: Past medical records reviewed. The patient was evaluated in room B10, and a complete history and physical examination were performed. 2008: Ordered Zofran 4 mg IV, Sodium Chloride 1000 mL @ 150 mL/hr IV, Sodium Chloride 1000 mL @ 999 mL/hr IV. 2100: I checked on the patient at this time. She is doing well. 2106: Ordered Sodium Chloride 1000 mL @ 999 mL/hr IV. 2154: Upon reevaluation, the patient is resting in bed. I discussed the results and treatment plan with her. She verbalized agreement of the treatment plan. The patient was discharged home. 2199: Ordered Zofran 1 homepack PO. Medical Decision Differential diagnosis includes; dehydration, gastroenteritis, pancreatitis, gastrointestinal illness, infection, cardiac disease, electrolyte or metabolic abnormality. This patient comes in as described above. She was placed in room B 10. She is here for treatment and evaluation of vomiting. She started earlier today and has vomited multiple times. she has minimal abdominal discomfort and no fever. No diarrhea but she thinks her stool starting to get soft. No blood in her vomit or stool. No trauma. IV access established and she was hydrated with IV normal saline. She received 2 L IV normal saline while she was here as well as Zofran 4 mg IV and she received a second dose if she started to feel mildly queasy again. She had no further vomiting after she receives Zofran and was observed for about 2 hours her abdomen remains benign and nontender. White count is mildly elevated which is likely from the vomiting. She has no acute electrode or metabolic abnormalities. Not suggest liver or pancreas disease. her gallbladder and appendix have been previously surgically removed. She is not . She has nothing to suggest cardiac disease and has a nonischemic EKG and normal troponin. She feels good and would like to go home. she feels it is likely something that she ate and more of a gastritis and I agree with this. She does have a mild diet use Zofran if needed for nausea and return if: Worsening of symptoms, fever or chills, any new problems or concerns. She is happy to plan and discharged home. Follow-up with her doctor in the next 1-2 days for recheck. Impression Primary Impression: Vomiting Additional Impression: Gastritis Scribe Attestation The scribe's documentation has been prepared under my direction and personally reviewed by me in its entirety. I confirm that the note above accurately reflects all work, treatment, procedures, and medical decision making performed by me. Departure Information Dispostion Home / Self-Care Prescriptions Ondasetron Odt (ZOFRAN ODT) 4 Mg Tab 4 MG SL Q6H for Nausea, #10 TAB Prov: Angus Sharma M.D. 08/31/17 Referrals Josse García D.O. (PCP) Forms HOME CARE DOCUMENTATION FORM, IMPORTANT VISIT INFORMATION Patient Instructions My [facility] Additional Instructions Rest. Drink plenty of fluids. Slowly advance diet. Mild diet. Use Zofran if needed for nausea every 6 hours as needed Return if: Worsening of symptoms, not tolerating fluids, fever chills, abdominal pain, any new problems or concerns. Follow-up with your doctor for recheck in 1-2 days if not better Problem Qualifiers
== END 2017-08-31 22:00 | disposition home or self-care (01) ==
LOC: C.EDB 19:41
DX: K29.70 Gastritis, unspecified, without bleeding (principal); J45.909 Unspecified asthma, uncomplicated; I10 Essential (primary) hypertension; F32.9 Major depressive disorder, single episode, unspecified; E11.9 Type 2 diabetes mellitus without complications; N32.81 Overactive bladder; Z90.49 Acquired absence of other specified parts of digestive tract; Z80.9 Family history of malignant neoplasm, unspecified; Z83.3 Family history of diabetes mellitus; Z82.49 Family history of ischemic heart disease and other diseases of the circulatory system; Z82.0 Family history of epilepsy and other diseases of the nervous system; Z79.899 Other long term (current) drug therapy; Z88.8 Allergy status to other drugs, medicaments and biological substances; Z88.0 Allergy status to penicillin; Z88.2 Allergy status to sulfonamides

== ENCOUNTER 2018-08-05 05:02 | Inpatient (IN) ==
--- NOTE | 2018-07-27 13:33 | PAT Medication Instructions ---
Medication Instructions Date of Service July 27, 2018 Home Medications Levemir FlexTouch U-100 Insuln 30 units SC QPM amlodipine 5 mg PO QPM calcium carb and citrate-vitD3 1 tab PO QAM duloxetine 30 mg PO TID fluticasone-salmeterol [Advair 1 inh INHALATION BID glucosamine-chondroitin [Cosamin 2 tab PO QPM levalbuterol tartrate [Xopenex HFA] 2 inh INHALATION Q6H PRN levonorgestrel [Mirena] 20 mcg INTRAUTERINE DAILY liothyronine 20 mcg PO QAM liraglutide [Victoza 3-Samy] 0.6 mg SUBCUT QPM naproxen sodium 3 tab PO BID PRN pantoprazole 40 mg PO QPM solifenacin [Vesicare] 10 mg PO QPM sumatriptan succinate 1 tab PO DAILY PRN Continue as directed levonorgestrel [Mirena] 20 mcg INTRAUTERINE DAILY STOP taking 2 weeks before surgery (or as soon as possible if surgery is within 2 weeks) glucosamine-chondroitin [Cosamin 2 tab PO QPM DO NOT take the morning of surgery calcium carb and citrate-vitD3 1 tab PO QAM Take morning of surgery With a small sip of water, OTHERWISE NOTHING TO EAT OR DRINK AFTER MIDNIGHT: duloxetine 30 mg PO TID fluticasone-salmeterol [Advair 1 inh INHALATION BID levalbuterol tartrate [Xopenex HFA] 2 inh INHALATION Q6H PRN (if needed) liothyronine 20 mcg PO QAM sumatriptan succinate 1 tab PO DAILY PRN (if needed) Take evening before surgery Levemir FlexTouch U-100 Insuln 30 units SC QPM amlodipine 5 mg PO QPM duloxetine 30 mg PO TID fluticasone-salmeterol [Advair 1 inh INHALATION BID levalbuterol tartrate [Xopenex HFA] 2 inh INHALATION Q6H PRN (if needed) liraglutide [Victoza 3-Samy] 0.6 mg SUBCUT QPM pantoprazole 40 mg PO QPM solifenacin [Vesicare] 10 mg PO QPM sumatriptan succinate 1 tab PO DAILY PRN (if needed) Other Notes If you have any questions please call us at [phone] or [phone] or [phone] or [phone]
--- NOTE | 2018-07-28 08:29 | Anesthesiology Consultation ---
Date of Service July 28, 2018 Assessment & Plan (1) Encounter for pre-operative examination: - PCP evaluated patient on 07/29 and initially considered preop cardiac evaluation. Upon further evaluation, per PCP followup note 07/29/18= "low-risk for surgical procedure. May proceed with stated procedure without additional pre- operative testing" and preop cardiac evaluation not needed prior to surgery from their perspective. Chart Review Chart Review: Acceptable Risk for Surgery and Patient seen in Pre Admission Testing Teaching & Discussion Pre-Anesthesia Teaching/Discussion Notes: Instructed NPO after midnight before surgery,except medications with 15 cc of water. Medication instructions provided according to the PAT guidelines. History Surgery Operation Date: 08/05/18 10:20 Proposed Procedures p Right Total Knee Arthroplasty - Jaime Henry Hairston MD Height/Weight Height: 5 ft 5 in Weight: 152.4 kg Allergies Allergy/AdvReac Type Severity Reaction Status Date / Time lisinopril Allergy Severe ANGIOEDEMA Verified 08/31/17 20:25 amoxicillin Allergy Intermediate HIVES Verified 08/31/17 20:25 metformin Allergy Intermediate migraines Verified 07/24/18 10:15 Sulfa (Sulfonamide Allergy Unknown HIVES Unverified 08/31/17 20:25 Antibiotics) Medications Home Medications Medication Instructions Recorded Confirmed Last Taken Levemir FlexTouch U-100 Insuln 30 units SC QPM 07/24/18 07/24/18 Unknown amlodipine 5 mg PO QPM 07/24/18 07/24/18 Unknown calcium carb and citrate-vitD3 1 tab PO QAM 07/24/18 07/24/18 Unknown [Citracal + D Slow Release] duloxetine 30 mg PO TID 07/24/18 07/24/18 Unknown fluticasone-salmeterol [Advair 1 inh INHALATION BID 07/24/18 07/24/18 Unknown Diskus] glucosamine-chondroitin [Cosamin 2 tab PO QPM 07/24/18 07/24/18 Unknown DS] levalbuterol tartrate [Xopenex HFA] 2 inh INHALATION Q6H PRN 07/24/18 07/24/18 Unknown levonorgestrel [Mirena] 20 mcg INTRAUTERINE DAILY 07/24/18 07/24/18 Unknown liothyronine 20 mcg PO QAM 07/24/18 07/24/18 Unknown liraglutide [Victoza 3-Samy] 0.6 mg SUBCUT QPM 07/24/18 07/24/18 Unknown naproxen sodium 3 tab PO BID PRN 07/24/18 07/24/18 Unknown pantoprazole 40 mg PO QPM 07/24/18 07/24/18 Unknown solifenacin [Vesicare] 10 mg PO QPM 07/24/18 07/24/18 Unknown sumatriptan succinate 1 tab PO DAILY PRN 07/24/18 07/24/18 Unknown Past Medical History Medical History Anxiety Asthma CONTROLLED Depression Diabetes mellitus, type 2 IDDM + INJECTABLE GERD (gastroesophageal reflux disease) CONTROLLED Hypertension Migraine Morbid obesity Osteoarthritis Overactive bladder Sleep apnea CPAP Tinnitus Past Family History Family History Grandmother (Maternal) Family history of diabetes mellitus Aunt Family history of diabetes mellitus Uncle Family history of diabetes mellitus Father Family history of diabetes mellitus Past Surgical History Surgical History History of loop electrical excision procedure (LEEP) History of total left knee replacement Hx of appendectomy Hx of cholecystectomy Hx of dilation and curettage Hx of shoulder surgery LEFT Past Anesthesia History No Family Hx of Anesthesia Complications and Other Left TKA 1+ years ago was done under [place]; patient states she had subsequent "pharyngeal spasm" and asthma exacerbation. History of PONV No Motion Sickness Screening History of Motion Sickness: No Social History Smoking Status: Never smoker Do You Dip or Chew Tobacco: No Hx Alcohol Use: No Hx Substance Use: No Exercise / Class Metabolic Activity III < 4 Walking/Shop/Light housework (USES CANE PRN) Review of Systems Patient denies chest pain, shortness of breath, cough, wheezing, palpitations. Physical Exam Vital Signs VITALS BP 124/68 P 98 TEMP 98.9 SP02 96%RA RESP 18 PHYSICAL Full neck and c-spine range of motion. Full TMJ range of motion. TMD 3 finger breaths Mallampati Score 2 Dentition: missing molar, several crowns on sides/molars; two implants on molars Lungs: clear throughout to auscultation Cardiac: regular rate and rhythm, no murmurs noted Spine: normal Carotid arteries: negative bruit Extremities: no edema Thick neck Testing Electrocardiogram Date: 08/31/17 Findings: + NSR @ (92) Chest X-Ray Date: 08/31/17 Findings: + NAD and + cardiomegaly (MILD) Laboratory Results 07/28/18 08:40 07/28/18 08:40 Blood Type A Positive 07/28/18 08:40 Antibody Screen NEGATIVE 07/28/18 08:40 PT 10.0 Seconds (9.0-12.0) 07/28/18 08:40 INR 1.0 (0.9-1.1) 07/28/18 08:40 APTT 26.2 Seconds (21.0-31.0) 07/28/18 08:40 Hemoglobin A1c 6.2 % (4.5-5.6) H 07/28/18 08:40
[2018-07-28 10:41] LABS: Basophils # (auto) 0.01 K/uL (0-0.2); Basophils % (auto) 0.1 %; Eosinophils # (auto) 0.07 K/uL (0-0.5); Eosinophils % (auto) 0.8 %; Hematocrit (blood only) 43.7 % (37-47); Hemoglobin 14.1 g/dL (12.0-16.0); Immature Granulocytes # (auto) 0.01 K/uL (0.00-0.02); Immature Granulocytes % (auto) 0.1 %; Lymphocytes # (auto) 1.96 K/uL (1.2-3.4); Lymphocytes % (auto) 23.3 %; Mean Corpuscular Hgb Conc 32.3 g/dL (32-36); Mean Platelet Volume 10.3 fL (7.4-10.4); Monocytes # (auto) 0.58 K/uL (0.11-0.59); Monocytes % (auto) 6.9 %; Neutrophils % (auto) 68.8 %; Platelet Count 330 K/uL (130-400); RDW Coefficient of Variation 15.8 % (11.5-14.5); Red Blood Count 4.91 M/uL (4.2-5.4); White Blood Count 8.43 K/uL (4.8-10.8)
[2018-07-28 10:48] LABS: Albumin Level 3.3 gm/dl (3.4-5.0); BUN Creatinine Ratio 10.7 (10-20); Bilirubin Direct 0.1 mg/dl (0-0.2); Calcium 8.5 mg/dl (8.5-10.1); Creatinine Clr Calc Pharmacy 135.7 ml/min; Est GFR (African American) 110.8; Est GFR (Non-African American) 95.6; Estimated Average Glucose 131 mg/dl; Hemoglobin A1C 6.2 % (4.5-5.6); Potassium 3.9 mmol/L (3.5-5.1)
[2018-07-28 10:51] LABS: Bilirubin,Total 0.7 mg/dl (0.2-1); Total Protein 7.4 gm/dl (6.4-8.2)
[2018-07-28 10:58] LABS: Partial Thromboplastin Time 26.2 Seconds (21.0-31.0)
[2018-08-05] MEDS ORDERED: dexAMETHasone 4 MG TAB PO SCH (06:00)
[2018-08-05] MEDS ORDERED: LR 60ML/HR IV SCH (06:00)
[2018-08-05] MEDS ORDERED: CeleBREX 200 MG CAP PO SCH (06:00)
[2018-08-05] MEDS ORDERED: FAMOTIDINE 20 MG TAB PO SCH (06:00)
[2018-08-05] MEDS ORDERED: GABAPENTIN 300 MG PO SCH (06:00)
[2018-08-05] MEDS ORDERED: ACETAMINOPHEN 500 MG TAB PO SCH (06:00)
[2018-08-05] MEDS ORDERED: SCOPOLAMINE 1.5 MG TDSY TD SCH (06:00)
[2018-08-05] MEDS ORDERED: TRANEXAMIC ACID 1,000 MG **IV Pre-op IV SCH (06:00)
[2018-08-05] MEDS ORDERED: ROPIVACAINE 0.5% HCL/PF 150 MG, BUPIVACAINE 0.5% MPF 30 ML, EPINEPHrine 0.15 MG, Ketoro... INFIL SCH (06:00)
[2018-08-05] MEDS ORDERED: ROPIVACAINE 0.5% HCL/PF 150 MG, BUPIVACAINE 0.5% MPF 30 ML, EPINEPHrine 30MG/30ML (OR U... INFIL SCH (06:00)
[2018-08-05] MEDS ORDERED: LR 500ML BOLUS, THEN 15ML/HR IV SCH (06:00)
[2018-08-05] MEDS ORDERED: METOCLOPRAMIDE HCL 10 MG TABLET PO SCH (06:00)
[2018-08-05] MEDS ORDERED: BUPIVACAINE 0.5 % 5 MG/1 ML PF 10ML VIAL ONE (06:25)
[2018-08-05] MEDS ORDERED: ROPIVACAINE 0.5% 5 MG/ML 30 ML VIAL ONE (06:26)
[2018-08-05] MEDS ORDERED: EPINEPHrine INJ 1 MG/ML AMP ONE (06:26)
[2018-08-05] MEDS ORDERED: KETAMINE HCL INJ 50 MG/ML 10 ML VIAL ONE ×6 (06:27→10:02)
[2018-08-05] MEDS ORDERED: MIDAZOLAM HCL 1 MG/ML 2ML VIAL ONE ×3 (06:27→09:32)
[2018-08-05] MEDS ORDERED: TRANEXAMIC ACID 1,000 MG **IV Intra-op IV SCH (06:30)
[2018-08-05] MEDS ORDERED: POVIDONE-IODINE OP SOLN 30 ML BTL ONE (06:32)
[2018-08-05] MEDS ORDERED: CEFAZOLIN 3000MG 72.5 ML IV ONE (06:34)
--- NOTE | 2018-08-05 06:37 | History & Physical Bridge Note ---
Date of Service August 05, 2018 History & Physical Bridge Note I have examined the patient, reviewed the History & Physical and in the interval since the performance of the History & Physical I have noted the following changes of clinical significance: no changes noted
[2018-08-05] MEDS ORDERED: CEFAZOLIN 3000MG/72.5 ML BAG IV ONE (06:40)
[2018-08-05] MEDS ORDERED: DEXAMETHASONE SOD INJ 4 MG/ML VIAL ONE (07:27)
[2018-08-05] MEDS ORDERED: ONDANSETRON INJ 2 MG/ML 2 ML VIAL ONE (07:27)
[2018-08-05] MEDS ORDERED: LIDOCAINE HCL 2% 2 ML VIAL/AMP(20MG/ML) INFIL ONE (07:27)
[2018-08-05] MEDS ORDERED: PROPOFOL IV EMULSION 10 MG/ML 20 ML VIAL IV ONE ×5 (07:27→09:51)
[2018-08-05] MEDS ORDERED: MEPERIDINE HCL 25 MG/ML CARP IV PRN (07:45)
[2018-08-05] MEDS ORDERED: ONDANSETRON INJ 2 MG/ML 2 ML VIAL IV PRN ×2 (07:45→12:35)
[2018-08-05] MEDS ORDERED: ePHEDrine sulfate 50 MG/ML AMP IV PRN (07:45)
[2018-08-05] MEDS ORDERED: HYDROmorphone INJ 1 MG/ML SYRINGE IV PRN (07:45)
[2018-08-05] MEDS ORDERED: LABETALOL HCL IV 5 MG/ML 20ML IV PRN (07:45)
[2018-08-05] MEDS ORDERED: PHENYLEPHRINE 100MCG/ML 5ML SYR IV PRN (07:45)
[2018-08-05] MEDS ORDERED: ATROPINE SULFATE 0.1 MG/ML 10ML SYR IV PRN (07:45)
[2018-08-05] MEDS ORDERED: fentaNYL citrate 100 MCG/2 ML VIAL IV PRN (07:45)
[2018-08-05] MEDS: ORTHO JOINT ANESTHETIC ONE ×2 (10:07→12:47)
[2018-08-05] MEDS ORDERED: fentaNYL citrate 100 MCG/2 ML VIAL ONE (10:21)
[2018-08-05] MEDS ORDERED: CEFAZOLIN 250 MG/ML 1 GM VIAL ONE (10:36)
--- NOTE | 2018-08-05 11:02 | Post Operative Brief Note ---
Immediate Post Op Note v1 Date of Surgery August 05, 2018 Pre & Post Diagnosis Operation Date: 08/05/18 07:00 Pre-Op Diagnosis: Osteoarthritis Knee Right, severe Post-Op Diagnosis: Osteoarthritis Knee Right, severe Procedure Operation Date: 08/05/18 07:00 Actual Procedures p Right Total Knee Arthroplasty(Right) - Jaime Hairston MD Surgeon Jaime Hairsotn MD Chart Snatcher Charlie Tobar PA-C (No fellow avail) Estimated Blood Loss 150 Findings Consistent with Post-Op Diagnosis Fluids 2200 cc Specimens Right knee bone contents Drains Kamara Catheter and Other (Previna) Anesthesia Type Spinal Complications none
--- NOTE | 2018-08-05 11:03 | Operative Report ---
Post Operative Report Pre & Post Diagnosis Operation Date: 08/05/18 07:00 Pre-Op Diagnosis: Osteoarthritis Knee Right, severe Post-Op Diagnosis: Osteoarthritis Knee Right, severe Procedure Operation Date: 08/05/18 07:00 Actual Procedures p Right Total Knee Arthroplasty(Right) - Jaime Hairston MD Surgeon Jaime Hairston MD Improvement Nurse Charlie Tobar PA-C (No fellow avail) Estimated Blood Loss 150 Findings See Below Examined Under Anesthesia: ROM -- There was 0 degrees to 120 degrees of flexion Ligamentous examination -- revealed stable Christa, posterior drawer, varus and valgus stress at 0 and 30 degrees. Outerbridge Type IV changes of medial compartment, [id number], osteophytes. Type III changes of the patellofemoral joint. Fluids 2200 cc Specimens Right knee bone contents Anesthesia Type Spinal Complications none Indications This is a 53-year-old female who has clinical and radiographic findings consistent with osteoarthritis of the a right knee. I recommended that a right total knee replacement be performed. The patient understands the risks of surgery, which include but not limited to: bleeding, infection, re-operation, damage to nerves and arteries, continued knee pain, knee stiffness, DVT, and . The patient understands all of these instructions and explanations, all of his questions have been satisfactorily addressed and the patient has elected to proceed. Informed consent was signed. Description of Procedure IMPLANTS: 1. Femur: Triathlon #4 Right PS. 2. Tibia: Triathlon #3 Alma with 12 x 50 mm stem. 3. Insert: Triathlon #3 x 9 mm PS X3 poly. 4. Patella: Triathlon A32 x 10 mm X3 poly. 5. Simplex cement. Procedure: The patient was taken to the Operating Room and placed in the supine position after spinal and adductor canal nerve block was administered. My initials and a multidisciplinary time-out were used to identify the right leg as the correct operative limb. A tourniquet was placed high in the thigh. Prior to the incis ion, 3 grams of intravenous Ancef were given. The right leg was then prepped and draped in a standard sterile fashion. An Esmarch was used to exsanguinate the leg and the tourniquet was inflated to 250 mmHg. The planned mid-line 29 cm incision was created exposing the extensor mechanism. The medial parapatellar arthrotomy was made and the patella was everted. The patella was addressed first. It was prepared by reaming from 22 mm down to 12 mm. An A32 button was found to fit best. The peg holes were made in the standard fashion. The femur was addressed next and the guide jovanna was placed intramedullary. The initial cutting block was placed with 5 degrees of valgus and removing 8 mm for the anterior cut. The cut was made and the 4-in-1 cutting block for a size 4 femur was placed. These cuts and the cuts to place the box were made in the standard fashion. Our attention was then drawn to the tibia cut with the external cutting guide, taking 4 mm from the medial low side. There was sufficient extension and flexion gap to fit a 9 mm spacer. A #3 Tibial baseplate fit well. A trial with a 9 mm spacer showed excellent stability in both flexion and extension, with good ligament balance. Range of motion of 0115 degrees. The tibial baseplate was pinned and the final preparation for the keel and stem was made. A stem was used due to some areas of soft bone, to avoid subsidence due to her large body habitus. All the trial components were tested again, with good stability and thumbs free tracking of the patella. All components were removed. The tourniquet was def lated. Hemostasis was obtained. 90 ml of total knee cocktail were injected into the soft tissues and periosteum. A bone plug was placed in the femur and covered with bone wax. After a 15 minute break, the limb was exsanguinated again and the tourniquet was re-inflated. All surfaces were copiously irrigated prior to placement of the components. The femoral component and Tibial baseplate were placed with the first batch of cement and a 9 mm X3 poly was placed. During the second batch of cement the patellar button was placed using Simplex cement. The range of motion and stability were unchanged. The extensor mechanism was closed with 1-0 and 0 Vicryl with the knee bent approximately 60 degrees in a standard fashion. The peritenon and deep fascia was closed with 0 and 2-0 Vicryl. The subcutaneous layer was closed with 3-0 Vicryl. The skin was closed with Zipline. The limb was cleaned and dried. A Previna dressing was placed over top of the incision, and a foot to thigh Pankaj ba ndage. The patient was then transferred to the Recovery Room in stable condition. The sponge and needle counts were correct. POST-OP INSTRUCTIONS: The patient will be WBAT. The patient will be admitted to the hospital. The patient will use the knee immobilizer when ambulating and standing until good quad control is achieved. Labs will be obtained during her stay. DVT prophylaxis will included Lovenox for 3 weeks then switching to aspirin for 3 more weeks, TEDs, and mechanical foot pumps. The Previna dressing will remain in place until her first postoperative visit in one week. The Kamara will be removed postop day #1. I attest to the content of the Intraoperative Record and any orders documented therein. Any exceptions are noted below.
--- NOTE | 2018-08-05 11:30 | Anesthesiology Progress Note ---
Date of Service August 05, 2018 Anesthesia Post Procedure Vital Signs Vital Signs: Temp Pulse Pulse Resp BP Pulse Ox 08/05/18 11:25 100 H 23 145/75 H 95 08/05/18 11:15 102 H 24 108/73 94 08/05/18 11:06 37.1 C 96 H 17 130/101 H 93 08/05/18 05:49 37.3 C 100 H 20 127/81 96 Pain Intensity Right Knee: Pain Intensity: 2 Notes Mental Status: alert / awake / arousable Patient Amnestic to Procedure: Yes Nausea / Vomiting: adequately controlled Pain: adequately controlled Airway Patency, RR, SpO2: stable & adequate BP & HR: stable & adequate Hydration State: stable & adequate Neuraxial Anesthesia: was administered and sensory block is resolving Anesthetic Complications: no major complications apparent and Pt Satisfied with anesthetic care
--- NOTE | 2018-08-05 11:33 | Operative Report ---
Post Operative Report Pre & Post Diagnosis Operation Date: 08/05/18 07:00 Pre-Op Diagnosis: Osteoarthritis Knee Right Post-Op Diagnosis: Osteoarthritis Knee Right Procedure Operation Date: 08/05/18 07:00 Actual Procedures p Right Total Knee Arthroplasty(Right) - Jaime Hairston MD Surgeon Jaime Hairston Health Support Specialist Charlie Tobar PA-C (No fellow avail) Estimated Blood Loss 150 Findings Consistent with Post-Op Diagnosis Specimens bone and soft tissue r knee Complications none Indications See Dr Hairston operative report for full details. Description of Procedure See Dr Hairston operative report for full details. I was heel sprayer first the entire case including prepping, draping, limb and instrument handling, wound closure, wound vac application, dressing application. I attest to the content of the Intraoperative Record and any orders documented therein. Any exceptions are noted below.
[2018-08-05] MEDS ORDERED: ALUMINUM/MAGNESIUM SUSP 30 ML UDC PO PRN (12:35)
[2018-08-05] MEDS ORDERED: MAGNESIUM HYDROXIDE SUSP 30 ML UDC PO PRN (12:35)
[2018-08-05] MEDS ORDERED: NALOXONE HCL 0.4 MG/1 ML VIAL/CARP IV PRN (12:35)
[2018-08-05] MEDS ORDERED: BISACODYL 10 MG SUPP PR PRN (12:35)
[2018-08-05] MEDS ORDERED: METOCLOPRAMIDE HCL INJ 5 MG/ML 2 ML VIAL IV PRN (12:35)
[2018-08-05] MEDS ORDERED: NAPROXEN SODIUM PO PRN (12:35)
[2018-08-05] MEDS ORDERED: DiphenhydrAMINE HCL 50 MG/ML VIAL IV PRN (12:35)
[2018-08-05] MEDS ORDERED: SODIUM CHLORIDE 0.9% 1000ML 1,000 ML IV SCH (12:35)
[2018-08-05] MEDS ORDERED: SUMAtriptan succinate 50 MG TAB PO PRN (12:35)
[2018-08-05] MEDS ORDERED: LEVALBUTEROL TARTRATE 15 GM HFA.AER.AD INH PRN (12:35)
--- NOTE | 2018-08-05 13:05 | XRay Report ---
XR knee RT 2V routine CLINICAL HISTORY: Surgical Post Op COMPARISON: Right knee radiographs July 09, 2017. FINDINGS: Alignment of the right knee arthroplasty is anatomic. There is no fracture or unexpected r adiopaque foreign body. There are soft tissue gas as expected. IMPRESSION: Expected findings following total right knee arthroplasty. Electronically signed by: Js Li M.D. 08/05/2018 1:04 PM
[2018-08-05] MEDS: OXYCODONE HCL IR 5 MG TAB (IMMEDIATE RELEASE) PO PRN ×2 (13:34→19:14)
[2018-08-05] MEDS ORDERED: PHARMACY GLYCEMIC MGMT CONSULT PRN (13:50)
[2018-08-05 13:58] LABS: Hematocrit (blood only) 37.3 % (37-47); Hemoglobin 12.2 g/dL (12.0-16.0); Mean Corpuscular Hgb Conc 32.7 g/dL (32-36); Mean Corpuscular Volume 88.4 fL (80-100); Mean Platelet Volume 9.7 fL (7.4-10.4); Platelet Count 335 K/uL (130-400); RDW Coefficient of Variation 15.4 % (11.5-14.5); RDW Standard Deviation 49.3 fL (36.4-46.3); Red Blood Count 4.22 M/uL (4.2-5.4); White Blood Count 16.17 K/uL (4.8-10.8)
[2018-08-05] MEDS: CEFAZOLIN 2000MG 2,000 MG/15 ML SYR IV SCH ×2 (14:03→22:27)
[2018-08-05] MEDS: DULOXETINE HCL 30 MG CAP PO SCH ×2 (14:03→21:43)
[2018-08-05 14:11] LABS: Partial Thromboplastin Ratio 0.7; Partial Thromboplastin Time 20.2 Seconds (21.0-31.0); Prothrombin Time 10.3 Seconds (9.0-12.0)
[2018-08-05 14:17] LABS: Creatinine Clr Calc Pharmacy 121.6 ml/min; Est GFR (African American) 97.6; Est GFR (Non-African American) 84.2
--- NOTE | 2018-08-05 15:11 | Pharmacy Report ---
Glycemic Control Consultation - Date of Service August 05, 2018 - Scope Scope: Glycemic Pharmacist consulted by Autumn Tobar on 08/05/18 for glycemic control and to write orders per [facility] inpatient glycemic control protocol - Objective Weight: 151.273 kg Accuchecks BSG (last 24hrs): 08/05/18 08/05/18 08/05/18 06:01 11:11 12:52 POC Glucose 129 H 158 H 163 H Laboratory Data (last 24hrs): 08/05/18 13:41 Creatinine 0.80 Est Cr Clr Drug Dosing 121.6 HbA1c: Hemoglobin A1c 6.2 % (4.5-5.6) H 07/28/18 08:40 - Recent Pertinent Medications Outpatient Anti-diabetic Regimen: * Levemir 30 units QPM, Victoza QPM * A1c = 6.2 % 07/28/18 Risk Factors for Insulin Resistance: * IVF: NSS @100ml/hr * Recent Surgery: Right TKA, POD #0 * Diet: TDM1 - Assessment & Plan Assessment & Plan: ASSESSMENT: * Ms. Christianson is a 53 year old female POD #0 right TKA. She is maintained on Levemir and Victoza as an outpatient. She did not receive any steroids pre-/ matteo-operatively. PLAN FOR INPATIENT GLYCEMIC CONTROL: * Basal insulin * Lantus per scale: * 22 units if BSG is equal to or less than 180 * 30 units if BSG is greater than 180 * Bolus insulin * NovoLog per scale ACHS or Q6hrs while NPO * Goal Range: Low 110 mg/dL - High 140 mg/dL * Correction Factor: 15 mg/dL/unit * Nutritional / Prandial insulin per carb ratio of 1 unit per 5 grams CHO consumed * Please note that the plan above was derived based on current level of insulin resistance and hospital stress. These recommendations are appropriate for inpatient admission only. Plan of care upon discharge will need to be reassessed to avoid potential outpatient hypo/hyperglycemia. Thank you.
--- NOTE | 2018-08-05 15:15 | Pharmacy Report ---
Glycemic Control Consultation - Date of Service August 05, 2018 - Scope Scope: Glycemic Pharmacist consulted by Toyin Tobar PA-C on 08/05/18 for glycemic control and to write orders per [facility] inpatient glycemic control protocol - Objective Weight: 151.273 kg Accuchecks BSG (last 24hrs): 08/05/18 08/05/18 08/05/18 06:01 11:11 12:52 POC Glucose 129 H 158 H 163 H HbA1c: Hemoglobin A1c 6.2 % (4.5-5.6) H 07/28/18 08:40 - Recent Pertinent Medications Outpatient Anti-diabetic Regimen: * Levemir 30 units QPM, Victoza QPM * A1c = 6.2 % 07/28/18 Risk Factors for Insulin Resistance: * IVF: NSS @100ml/hr * Recent Surgery: Right TKA performed this morning * Diet: TDM1 - Assessment & Plan Assessment & Plan: ASSESSMENT: * Ms. Christianson is a 53 year old female POD #0 right TKA. She is maintained on Levemir and Victoza as an outpatient. She did not receive any steroids pre-/ matteo-operatively. PLAN FOR INPATIENT GLYCEMIC CONTROL: * Basal insulin * Lantus per scale: * 22 units if BSG is equal to or less than 180 * 30 units if BSG is greater than 180 * Bolus insulin * NovoLog per scale ACHS or Q6hrs while NPO * Goal Range: Low 110 mg/dL - High 140 mg/dL * Correction Factor: 15 mg/dL/unit * Nutritional / Prandial insulin per carb ratio of 1 unit per 5 grams CHO consumed * Please note that the plan above was derived based on current level of insulin resistance and hospital stress. These recommendations are appropriate for inpatient admission only. Plan of care upon discharge will need to be reassessed to avoid potential outpatient hypo/hyperglycemia. Thank you.
[2018-08-05] MEDS: CHECK SCOPOLAMINE PATCH PLACEMENT SCH (15:33)
--- NOTE | 2018-08-05 16:11 | Consultation ---
Date of Consultation August 05, 2018 Assessment & Plan (1) Knee pain, chronic: post-op Pre-op Hb 14.1 (2) DM type 2 (diabetes mellitus, type 2): continue home meds, SSI PRN A1c 6.2 (3) Thyroid disorder: continue home meds (4) Hypertension: continue home meds (5) Depression: continue home meds (6) Overactive bladder: continue home meds (7) GERD (gastroesophageal reflux disease): continue home meds (8) Migraine: continue home meds (9) ABIOLA (obstructive sleep apnea): CPAP as at home (10) Anxiety: continue home meds (11) Asthma: States only an issue when she has a URI (12) DVT prophylaxis: As per ortho History of Present Illness Attending Physician: Jaime Hairston MD History of Present Illness 53 y/o F who was admitted on 08/05 s/p R TKA with Dr. Hairston. Pt is doing well post-op. Pain is minimal at present. She has hx of post-op anesthesia issues, but has had no GI issue today. Tolerating PO without issue. Pt denies fever, SOB, chest pain, abd pain, n/v/c/d, LE swelling. Allergies Allergy/AdvReac Type Severity Reaction Status Date / Time lisinopril Allergy Severe ANGIOEDEMA Verified 08/05/18 05:48 amoxicillin Allergy Intermediate HIVES Verified 08/05/18 05:48 metformin Allergy Intermediate migraines Verified 08/05/18 05:48 Sulfa (Sulfonamide Allergy Unknown HIVES Verified 08/05/18 06:11 Antibiotics) Home Medications Home Medications Medication Instructions Recorded Confirmed Type Levemir FlexTouch U-100 Insuln 30 units SC QPM 07/24/18 08/05/18 History amlodipine 5 mg PO QPM 07/24/18 08/05/18 History calcium carb and citrate-vitD3 1 tab PO QAM 07/24/18 08/05/18 History [Citracal + D Slow Release] duloxetine 30 mg PO TID 07/24/18 08/05/18 History fluticasone-salmeterol [Advair 1 inh INHALATION BID 07/24/18 08/05/18 History Diskus] glucosamine-chondroitin [Cosamin 2 tab PO QPM 07/24/18 08/05/18 History DS] levalbuterol tartrate [Xopenex HFA] 2 inh INHALATION Q6H PRN 07/24/18 08/05/18 History levonorgestrel [Mirena] 20 mcg INTRAUTERINE DAILY 07/24/18 08/05/18 History liothyronine 20 mcg PO QAM 07/24/18 08/05/18 History liraglutide [Victoza 3-Samy] 0.6 mg SUBCUT QPM 07/24/18 08/05/18 History naproxen sodium 3 tab PO BID PRN 07/24/18 08/05/18 History pantoprazole 40 mg PO QPM 07/24/18 08/05/18 History solifenacin [Vesicare] 10 mg PO QPM 07/24/18 08/05/18 History sumatriptan succinate 1 tab PO DAILY PRN 07/24/18 08/05/18 History Patient History Medical History Anxiety Asthma CONTROLLED Depression Diabetes mellitus, type 2 IDDM + INJECTABLE GERD (gastroesophageal reflux disease) CONTROLLED Hypertension Migraine Osteoarthritis Overactive bladder Sleep apnea CPAP Tinnitus Morbid obesity Surgical History History of loop electrical excision procedure (LEEP) History of total left knee replacement Hx of appendectomy Hx of cholecystectomy Hx of dilation and curettage Hx of shoulder surgery LEFT Family History Grandmother (Maternal) Family history of diabetes mellitus Aunt Family history of diabetes mellitus Uncle Family history of diabetes mellitus Father Family history of diabetes mellitus Social History Preferred Language: Haitian Communication Ability: Effective Beliefs That Will Affect Care: None Current Living Situation: Family Other Information That Helps Us Care for You: No Feels Safe at Home: Yes Safety Concerns: Feels Safe At This Time Smoking Status: Never smoker Hx Alcohol Use: No Hx Substance Use: No Review of Systems Pertinent positives and negatives reviewed in HPI--all others negative Physical Exam Vital Signs (Past 24 Hours): Last Vital Signs Temp 37.3 C 08/05/18 15:20 Pulse 93 H 08/05/18 15:20 Resp 16 08/05/18 15:20 BP 123/78 08/05/18 15:20 Pulse Ox 97 08/05/18 15:20 Constitutional: + obese; no acute distress Eyes: normal visual locke by confrontation and + anicteric sclerae Neck: normal visual inspection and trachea midline Respiratory: normal respiratory effort, lungs clear to auscultation Cardiovascular: Rate/Rhythm: regular rate and regular rhythm Gastrointestinal (Abdomen): Inspection/Auscultation: abdomen not distended Percussion/Palpation: abdomen soft; abdomen nontender Musculoskeletal: Head/Neck/Chest: normocephalic and head atraumatic negative for edema, peripheral pulses intact Skin: no rashes, warm and dry Neurologic: awake; not confused Speech / Cognition: normal speech Psychiatric: A+Ox3, euthymic affect
--- NOTE | 2018-08-05 16:40 | Orthopedic Progress Note ---
Date of Service August 05, 2018 Assessment & Plan (1) S/P total knee arthroplasty: POD # 0, s/p R TKA, Doing as well as expected. Diabetic diet. Previna to remain on until first postop follow-up in 7 days. WBAT RLE with knee immobilizer, and untill she is able to demonstrate good quad control for 48 hours. Ambulate with a walker. PT/OT. Resume home meds. Continue pain control. Antibiotics continued for 24 hours. ELIAN Kamara 08/06/18 in a.m. DVT prophylaxis: TEDs and foot pumps, start Lovenox 30 mg subcutaneous twice a day 08/06/18 in a.m. and continue for 3 weeks, then switching to aspirin 325 by mouth twice a day for another 3 weeks. Continue with TEDs on operative leg for minimum of 2 weeks or until swelling returns to normal. Appreciate medicine input. Discharge planning Present on Admission?: No Subjective Right knee pain, expected. Physical Exam Vital Signs (Past 24 Hours): Last Vital Signs Temp 37.3 C 08/05/18 15:20 Pulse 93 H 08/05/18 15:20 Resp 16 08/05/18 15:20 BP 123/78 08/05/18 15:20 Pulse Ox 97 08/05/18 15:20 Physical Exam: RLE: Wiggling her toes up and down. Brisk cap refill less than 2 seconds. Sensation to light touch is intact distally. Calf is soft and non- tender. Dressing is clean, dry, intact. Previna in place and functioning. Results & Data Diagnostic Findings AP and lateral right knee, show components to be in good position following TKA.
[2018-08-05] MEDS: FERROUS GLUCONATE 324 MG TAB PO SCH (18:14)
[2018-08-05] MEDS: ASCORBIC ACID 500 MG TAB PO SCH (18:14)
[2018-08-05] MEDS: INSULIN ASPART 100 UNITS/ML 3 ML PEN SC SCH ×2 (18:15→21:46)
[2018-08-05] MEDS ORDERED: INSULIN DETEMIR SC SCH (21:00)
[2018-08-05] MEDS ORDERED: [UNRECOGNIZED DRUG - OTHER] SC SCH (21:00)
[2018-08-05] MEDS ORDERED: INSULIN GLARGINE SOLOSTAR 100 UNITS/ML 3 ML PEN SC ONE (21:00)
[2018-08-05] MEDS: FLUTICASONE/SALMETEROL 250/50 (ADVAIR) 14 PUFF/1 INHALER INH SCH (21:42)
[2018-08-05] MEDS: AMLODIPINE BESYLATE 5 MG TAB PO SCH (21:43)
[2018-08-05] MEDS: DOCUSATE SODIUM 100 MG CAP PO SCH (21:43)
[2018-08-05] MEDS: SENNA 8.6 MG TAB PO SCH (21:44)
[2018-08-05] MEDS: PANTOprazole 40 MG TAB PO SCH (21:44)
[2018-08-05] MEDS: HYDROmorphone INJ 0.5 MG/0.5 ML SYR IV PRN (21:53)
[2018-08-06] MEDS ORDERED: INSULIN ASPART 100 UNITS/ML 3 ML PEN SC SCH
[2018-08-06] MEDS: CHECK SCOPOLAMINE PATCH PLACEMENT SCH (00:20)
[2018-08-06] MEDS: OXYCODONE HCL IR 5 MG TAB (IMMEDIATE RELEASE) PO PRN ×3 (01:19→12:23)
[2018-08-06] MEDS: HYDROmorphone INJ 0.5 MG/0.5 ML SYR IV PRN ×3 (04:38→18:38)
[2018-08-06 06:14] LABS: Hematocrit (blood only) 32.9 % (37-47); Hemoglobin 11.2 g/dL (12.0-16.0); Mean Corpuscular Volume 87.5 fL (80-100); Mean Platelet Volume 9.4 fL (7.4-10.4); Platelet Count 329 K/uL (130-400); RDW Coefficient of Variation 15.2 % (11.5-14.5); RDW Standard Deviation 48.9 fL (36.4-46.3); Red Blood Count 3.76 M/uL (4.2-5.4); White Blood Count 14.74 K/uL (4.8-10.8)
[2018-08-06 06:39] LABS: BUN Creatinine Ratio 12.6 (10-20); Creatinine Clr Calc Pharmacy 111.8 ml/min; Est GFR (African American) 88.2; Est GFR (Non-African American) 76.1; Potassium 3.8 mmol/L (3.5-5.1)
--- NOTE | 2018-08-06 08:16 | Anesthesiology Progress Note ---
Date of Service August 06, 2018 Anesthesia Post Procedure Vital Signs Vital Signs: Temp Pulse Pulse Resp BP Pulse Ox 08/06/18 07:04 36.8 C 87 17 131/85 87 L 08/06/18 03:06 36.8 C 86 17 131/83 92 08/05/18 23:13 36.8 C 89 16 118/88 93 08/05/18 19:07 36.6 C 98 H 17 149/82 H 96 08/05/18 15:20 37.3 C 93 H 16 123/78 97 08/05/18 14:05 99 H 16 109/75 97 08/05/18 13:37 36.6 C 101 H 20 113/76 97 08/05/18 12:55 94 H 16 108/70 97 08/05/18 12:25 37.4 C 98 H 16 121/74 97 08/05/18 12:05 98 H 19 121/80 95 08/05/18 11:55 36.9 C 100 H 26 H 108/90 94 08/05/18 11:45 96 H 25 H 125/85 94 08/05/18 11:35 100 H 21 125/86 93 08/05/18 11:25 100 H 23 145/75 H 95 08/05/18 11:15 102 H 24 108/73 94 08/05/18 11:06 37.1 C 96 H 17 130/101 H 93 Pain Intensity Right Knee: Pain Intensity: 2 Notes Mental Status: alert / awake / arousable and participated in evaluation Nausea / Vomiting: adequately controlled Pain: adequately controlled Airway Patency, RR, SpO2: stable & adequate BP & HR: stable & adequate Hydration State: stable & adequate Neuraxial Anesthesia: sensory block resolved
[2018-08-06] MEDS: LIOTHYRONINE SODIUM 5 MCG TAB PO SCH (08:30)
[2018-08-06] MEDS: DULOXETINE HCL 30 MG CAP PO SCH ×3 (08:30→21:01)
[2018-08-06] MEDS: MULTIVITAMIN TAB PO SCH (08:30)
[2018-08-06] MEDS: FLUTICASONE/SALMETEROL 250/50 (ADVAIR) 14 PUFF/1 INHALER INH SCH ×2 (08:30→21:00)
[2018-08-06] MEDS: ASCORBIC ACID 500 MG TAB PO SCH ×2 (08:31→16:45)
[2018-08-06] MEDS: DOCUSATE SODIUM 100 MG CAP PO SCH ×2 (08:31→21:00)
[2018-08-06] MEDS: ENOXAPARIN INJ 30 MG/0.3 ML SYR SQ SCH ×2 (08:32→21:01)
[2018-08-06] MEDS: FERROUS GLUCONATE 324 MG TAB PO SCH ×2 (08:33→16:45)
[2018-08-06] MEDS: INSULIN ASPART 100 UNITS/ML 3 ML PEN SC SCH ×4 (08:35→21:04)
[2018-08-06] MEDS ORDERED: LEVONORGESTREL (MIRENA) IUD PV SCH ×2 (09:00)
[2018-08-06] MEDS ORDERED: LEVONORGESTREL (MIRENA) IUD PV PRN (09:00)
--- NOTE | 2018-08-06 09:09 | Orthopedic Progress Note ---
Date of Service August 06, 2018 Assessment & Plan (1) S/P total knee arthroplasty: POD # 1, s/p R TKA, Doing as well as expected. Diabetic diet. Previna to remain on until first postop follow-up in 7 days scheduled for 08-12-18 at 11:15. WBAT RLE with knee immobilizer, and untill she is able to demonstrate good quad control for 48 hours. Ambulate with a walker. PT/OT. Continue pain control. DVT prophylaxis: TEDs and foot pumps, start Lovenox 30 mg subcutaneous twice a day 08/06/18 in a.m. and continue for 3 weeks, then switching to aspirin 325 by mouth twice a day for another 3 weeks. Continue with TEDs on operative leg for minimum of 2 weeks or until swelling returns to normal. Appreciate medicine input. Discharge planning to home with home health PT. Plan for tomorrow 08-07-18. I, Dr. Hairston, saw and examined and agree with the above findings and plan of care discussed with my PA. Subjective Patient in chair. Eating breakfast. Pain throughout the night and into this am requiring IV dilaudid. Denies fever,chills, sweats, chest pain, shortness of breath, nausea, vomiting. Catheter has been removed. Hasnt yet seen PT or manager rn case. Would prefer DC to home with home health therapy. Doesn't feel ready to go home today, hoping for tomorrow. Physical Exam Vital Signs (Past 24 Hours): Last Vital Signs Temp 36.8 C 08/06/18 07:04 Pulse 87 08/06/18 07:04 Resp 17 08/06/18 07:04 BP 131/85 08/06/18 07:04 Pulse Ox 87 L 08/06/18 07:04 Physical Exam: No acute distress. A and O x 3. Sitting comfortably in chair eating breakfast. Right LE elevated with knee immobilizer, previna, иван intact. No drainage noted in Previna. 1+ PE RLE. Right LE with loretta hose intact. NV intact B LE with palpable DP and PT pulses. Brisk capillary refill. Sensation intact to light touch. Able to wiggle toes and ankle B LE with 5/5 EHL, TA, gastroc strength. B calves soft and negative homans. Results & Data Laboratory Results 08/06/18 08/06/18 08/06/18 Range/Units 07:56 05:54 05:54 WBC 14.74 H (4.8-10.8) K/uL RBC 3.76 L (4.2-5.4) M/uL Hgb 11.2 L (12.0-16.0) g/dL Hct 32.9 L (37-47) % MCV 87.5 (80-100) fL MCH 29.8 (25-34) pg MCHC 34.0 (32-36) g/dL RDW Std Deviation 48.9 H (36.4-46.3) fL RDW Coeff of Ash 15.2 H (11.5-14.5) % Plt Count 329 (130-400) K/uL MPV 9.4 (7.4-10.4) fL PT (9.0-12.0) Seconds INR (0.9-1.1) APTT (21.0-31.0) Seconds PTT Ratio Sodium 128 L (136-145) mmol/L Potassium 3.8 (3.5-5.1) mmol/L Chloride 96 L (98-107) mmol/L Carbon Dioxide 27 (21-32) mmol/L Anion Gap 5.0 (3-11) BUN 11 (7-18) mg/dl Creatinine 0.87 (0.6-1.2) mg/dl Est Cr Clr Drug Dosing 111.8 ml/min Est GFR ( Amer) 88.2 Est GFR (Non-Af Amer) 76.1 BUN/Creatinine Ratio 12.6 (10-20) Glucose 164 H (70-99) mg/dl POC Glucose 148 H (70-99) Calcium 8.0 L (8.5-10.1) mg/dl POC Ur Test (NEG) 08/06/18 08/05/18 08/05/18 Range/Units 00:20 Unknown 20:32 WBC (4.8-10.8) K/uL RBC (4.2-5.4) M/uL Hgb (12.0-16.0) g/dL Hct (37-47) % MCV (80-100) fL MCH (25-34) pg MCHC (32-36) g/dL RDW Std Deviation (36.4-46.3) fL RDW Coeff of Ash (11.5-14.5) % Plt Count (130-400) K/uL MPV (7.4-10.4) fL PT (9.0-12.0) Seconds INR (0.9-1.1) APTT (21.0-31.0) Seconds PTT Ratio Sodium (136-145) mmol/L Potassium (3.5-5.1) mmol/L Chloride (98-107) mmol/L Carbon Dioxide (21-32) mmol/L Anion Gap (3-11) BUN (7-18) mg/dl Creatinine (0.6-1.2) mg/dl Est Cr Clr Drug Dosing ml/min Est GFR ( Amer) Est GFR (Non-Af Amer) BUN/Creatinine Ratio (10-20) Glucose (70-99) mg/dl POC Glucose 137 H 197 H (70-99) Calcium (8.5-10.1) mg/dl POC Ur Test NEG (NEG) 08/05/18 08/05/18 08/05/18 Range/Units 16:46 13:41 13:41 WBC (4.8-10.8) K/uL RBC (4.2-5.4) M/uL Hgb (12.0-16.0) g/dL Hct (37-47) % MCV (80-100) fL MCH (25-34) pg MCHC (32-36) g/dL RDW Std Deviation (36.4-46.3) fL RDW Coeff of Ash (11.5-14.5) % Plt Count (130-400) K/uL MPV (7.4-10.4) fL PT 10.3 (9.0-12.0) Seconds INR 1.0 (0.9-1.1) APTT 20.2 L (21.0-31.0) Seconds PTT Ratio 0.7 Sodium (136-145) mmol/L Potassium (3.5-5.1) mmol/L Chloride (98-107) mmol/L Carbon Dioxide (21-32) mmol/L Anion Gap (3-11) BUN (7-18) mg/dl Creatinine 0.80 (0.6-1.2) mg/dl Est Cr Clr Drug Dosing 121.6 ml/min Est GFR ( Amer) 97.6 Est GFR (Non-Af Amer) 84.2 BUN/Creatinine Ratio (10-20) Glucose (70-99) mg/dl POC Glucose 188 H (70-99) Calcium (8.5-10.1) mg/dl POC Ur Test (NEG) 08/05/18 08/05/18 08/05/18 Range/Units 13:41 12:52 11:11 WBC 16.17 H (4.8-10.8) K/uL RBC 4.22 (4.2-5.4) M/uL Hgb 12.2 (12.0-16.0) g/dL Hct 37.3 (37-47) % MCV 88.4 (80-100) fL MCH 28.9 (25-34) pg MCHC 32.7 (32-36) g/dL RDW Std Deviation 49.3 H (36.4-46.3) fL RDW Coeff of Ash 15.4 H (11.5-14.5) % Plt Count 335 (130-400) K/uL MPV 9.7 (7.4-10.4) fL PT (9.0-12.0) Seconds INR (0.9-1.1) APTT (21.0-31.0) Seconds PTT Ratio Sodium (136-145) mmol/L Potassium (3.5-5.1) mmol/L Chloride (98-107) mmol/L Carbon Dioxide (21-32) mmol/L Anion Gap (3-11) BUN (7-18) mg/dl Creatinine (0.6-1.2) mg/dl Est Cr Clr Drug Dosing ml/min Est GFR ( Amer) Est GFR (Non-Af Amer) BUN/Creatinine Ratio (10-20) Glucose (70-99) mg/dl POC Glucose 163 H 158 H (70-99) Calcium (8.5-10.1) mg/dl POC Ur Test (NEG)
--- NOTE | 2018-08-06 09:36 | Pharmacy Report ---
Pharmacy Glycemic Short Note 2 - Date of Service August 06, 2018 - Glycemic Short BSG Results (Last 24 hours): 08/05/18 08/05/18 08/05/18 11:11 12:52 16:46 Glucose POC Glucose 158 H 163 H 188 H 08/05/18 08/06/18 08/06/18 20:32 00:20 05:54 Glucose 164 H POC Glucose 197 H 137 H 08/06/18 07:56 Glucose POC Glucose 148 H OUTPATIENT ANTIDIABETIC REGIMEN: * Levemir 30 units SQ HS * Liraglutide 0.6mg SQ daily * A1c = 6.2% 07/28/18 ASSESSMENT: * Type 2 diabetic POD # 1 s/p R TKA * Glycemic control acceptable over the last 24 hrs * Fasting BSG 148 this AM, slightly elevated, with 30 units of Lantus on board - will continue similar dose this evening * Novolog CF and CR performed fairly well yesterday - will continue the same today and follow BSG pattern closely * Pt may be discharged tomorrow PLAN FOR INPATIENT GLYCEMIC CONTROL: * Hold outpatient oral diabetes medications (Liraglutide) * Basal insulin * Lantus 30 units Q HS * Bolus insulin * NovoLog per scale ACHS or Q6hrs while NPO * Goal Range: Low 110 mg/dL - High 140 mg/dL * Correction Factor: 15 mg/dL/unit * Nutritional / Prandial insulin per carb ratio of 1 unit per 5 grams CHO consumed PLAN FOR DISCHARGE: * May resume out-pt regimen of Levemir + Liraglutide given good control per recent A1c assessment
--- NOTE | 2018-08-06 13:30 | Hospitalist Progress Note ---
Date of Service August 06, 2018 Assessment & Plan (1) Knee pain, chronic: - S/p right TKA on 08/05; POD#1. - Pain control per primary team. - IS q1hr WA. - DVT ppx with Lovenox 30 mg subQ BID x 3 weeks then Aspirin 325 mg BID x 3 weeks. (2) S/P total knee arthroplasty: - Management per primary team. (3) DM type 2 (diabetes mellitus, type 2): - Most recent A1C was 6.2 in July 2018. - Continue home Levemir 30 units qPM; added SSI coverage. - Pharmacy consulted for glycemic management. - Holding home Victoza. (4) Thyroid disorder: - Continue home Cytomel 20 mcg qAM as prescribed. - No recent TSH documented; will order in the AM. (5) Hypertension: - Continue home Amlodipine 5 mg qPM as prescribed. - BP has been well controlled. (6) Depression: - Continue home Cymbalta as prescribed. (7) Overactive bladder: - Continue home Vesicare -- will need to bring from home. (8) GERD (gastroesophageal reflux disease): - PPI qAM. (9) Migraine: - Imitrex prn. (10) ABIOLA (obstructive sleep apnea): - Use CPAP qhs. (11) Asthma: - Continue home Advair BID with Xopenex prn. (12) Obesity: - BMI 55. Encourage weight loss and exercise. (13) Hyponatremia: - Na level decreased to 128. - Serum osmo, urine osmo and sodium all pending. (14) DVT prophylaxis: - Per ortho team. Dispo: Will continue to follow, please call with questions. Supervising Physician Co-Signing Physician Notes Attending Attestation: Chart reviewed in detail, care plan d/w TAMIA Nolan. I agree w/ the tamez components of her documentation. s/p right TKR. Post-op developed hyponatremia. Agree w/ work-up for such (serum osm, urine osm, etc). Other plans per Ms. Nolan. Chaim Robles MD Subjective Pt. is doing well overall today. Complains of mild right knee pain following procedure. Worked with PT/OT, will be discharged to home. Denies chest pain, SOB, N/V, urinary retention or constipation. Review of Systems All systems reviewed & are unremarkable except as noted in HPI & below Constitutional: no fever, no chills, no fatigue, no weakness and no anorexia Respiratory: no cough, no dyspnea and no wheezing Cardiovascular: no chest pain, no syncope and no edema Gastrointestinal: no abdominal pain, no nausea, no vomiting, no constipation and no diarrhea/loose stools Genitourinary (Female): no difficulty urinating Musculoskeletal: + joint pain Allergy / Immunological: no rash Physical Exam Vital Signs (Past 24 Hours): Last Vital Signs Temp 36.8 C 08/06/18 07:04 Pulse 87 08/06/18 07:04 Resp 17 08/06/18 07:04 BP 131/85 08/06/18 07:04 Pulse Ox 87 L 08/06/18 07:04 Physical Exam: General: Obese female, in no acute distress. HEENT: NC/AT; PERRLA with EOMI; [place] conjunctiva, MMM. Neck: Supple and nontender Cardiac: RRR Lungs: CTA bilaterally Abdomen: Bowel normoactive X 4; Nontender to palpation Extremities: Warm. No edema present. Dressing in place over right knee, did not examine incision site. Neuro: No focal weakness Skin: No rash Results & Data Laboratory Results 08/06/18 08/06/18 08/06/18 Range/Units 11:58 09:32 07:56 WBC (4.8-10.8) K/uL RBC (4.2-5.4) M/uL Hgb (12.0-16.0) g/dL Hct (37-47) % MCV (80-100) fL MCH (25-34) pg MCHC (32-36) g/dL RDW Std Deviation (36.4-46.3) fL RDW Coeff of Ash (11.5-14.5) % Plt Count (130-400) K/uL MPV (7.4-10.4) fL PT (9.0-12.0) Seconds INR (0.9-1.1) APTT (21.0-31.0) Seconds PTT Ratio Sodium (136-145) mmol/L Potassium (3.5-5.1) mmol/L Chloride (98-107) mmol/L Carbon Dioxide (21-32) mmol/L Anion Gap (3-11) BUN (7-18) mg/dl Creatinine (0.6-1.2) mg/dl Est Cr Clr Drug Dosing ml/min Est GFR ( Amer) Est GFR (Non-Af Amer) BUN/Creatinine Ratio (10-20) Glucose (70-99) mg/dl POC Glucose 139 H 148 H (70-99) Osmolality Pending Calcium (8.5-10.1) mg/dl POC Ur Test (NEG) 08/06/18 08/06/18 08/06/18 Range/Units 05:54 05:54 00:20 WBC 14.74 H (4.8-10.8) K/uL RBC 3.76 L (4.2-5.4) M/uL Hgb 11.2 L (12.0-16.0) g/dL Hct 32.9 L (37-47) % MCV 87.5 (80-100) fL MCH 29.8 (25-34) pg MCHC 34.0 (32-36) g/dL RDW Std Deviation 48.9 H (36.4-46.3) fL RDW Coeff of Ash 15.2 H (11.5-14.5) % Plt Count 329 (130-400) K/uL MPV 9.4 (7.4-10.4) fL PT (9.0-12.0) Seconds INR (0.9-1.1) APTT (21.0-31.0) Seconds PTT Ratio Sodium 128 L (136-145) mmol/L Potassium 3.8 (3.5-5.1) mmol/L Chloride 96 L (98-107) mmol/L Carbon Dioxide 27 (21-32) mmol/L Anion Gap 5.0 (3-11) BUN 11 (7-18) mg/dl Creatinine 0.87 (0.6-1.2) mg/dl Est Cr Clr Drug Dosing 111.8 ml/min Est GFR ( Amer) 88.2 Est GFR (Non-Af Amer) 76.1 BUN/Creatinine Ratio 12.6 (10-20) Glucose 164 H (70-99) mg/dl POC Glucose 137 H (70-99) Osmolality Calcium 8.0 L (8.5-10.1) mg/dl POC Ur Test (NEG) 08/05/18 08/05/18 08/05/18 Range/Units Unknown 20:32 16:46 WBC (4.8-10.8) K/uL RBC (4.2-5.4) M/uL Hgb (12.0-16.0) g/dL Hct (37-47) % MCV (80-100) fL MCH (25-34) pg MCHC (32-36) g/dL RDW Std Deviation (36.4-46.3) fL RDW Coeff of Ash (11.5-14.5) % Plt Count (130-400) K/uL MPV (7.4-10.4) fL PT (9.0-12.0) Seconds INR (0.9-1.1) APTT (21.0-31.0) Seconds PTT Ratio Sodium (136-145) mmol/L Potassium (3.5-5.1) mmol/L Chloride (98-107) mmol/L Carbon Dioxide (21-32) mmol/L Anion Gap (3-11) BUN (7-18) mg/dl Creatinine (0.6-1.2) mg/dl Est Cr Clr Drug Dosing ml/min Est GFR ( Amer) Est GFR (Non-Af Amer) BUN/Creatinine Ratio (10-20) Glucose (70-99) mg/dl POC Glucose 197 H 188 H (70-99) Osmolality Calcium (8.5-10.1) mg/dl POC Ur Test NEG (NEG) 08/05/18 08/05/18 08/05/18 Range/Units 13:41 13:41 13:41 WBC 16.17 H (4.8-10.8) K/uL RBC 4.22 (4.2-5.4) M/uL Hgb 12.2 (12.0-16.0) g/dL Hct 37.3 (37-47) % MCV 88.4 (80-100) fL MCH 28.9 (25-34) pg MCHC 32.7 (32-36) g/dL RDW Std Deviation 49.3 H (36.4-46.3) fL RDW Coeff of Ash 15.4 H (11.5-14.5) % Plt Count 335 (130-400) K/uL MPV 9.7 (7.4-10.4) fL PT 10.3 (9.0-12.0) Seconds INR 1.0 (0.9-1.1) APTT 20.2 L (21.0-31.0) Seconds PTT Ratio 0.7 Sodium (136-145) mmol/L Potassium (3.5-5.1) mmol/L Chloride (98-107) mmol/L Carbon Dioxide (21-32) mmol/L Anion Gap (3-11) BUN (7-18) mg/dl Creatinine 0.80 (0.6-1.2) mg/dl Est Cr Clr Drug Dosing 121.6 ml/min Est GFR ( Amer) 97.6 Est GFR (Non-Af Amer) 84.2 BUN/Creatinine Ratio (10-20) Glucose (70-99) mg/dl POC Glucose (70-99) Osmolality Calcium (8.5-10.1) mg/dl POC Ur Test (NEG)
[2018-08-06] MEDS: PANTOprazole 40 MG TAB PO SCH (21:01)
[2018-08-06] MEDS: OXYCODONE HCL 10 MG TABCR (OXYCONTIN) PO SCH (21:01)
[2018-08-06] MEDS: SENNA 8.6 MG TAB PO SCH (21:01)
[2018-08-06] MEDS: AMLODIPINE BESYLATE 5 MG TAB PO SCH (21:01)
[2018-08-06] MEDS: INSULIN GLARGINE SOLOSTAR 100 UNITS/ML 3 ML PEN SC SCH (21:02)
[2018-08-07] MEDS: OXYCODONE HCL IR 5 MG TAB (IMMEDIATE RELEASE) PO PRN ×3 (00:30→23:22)
[2018-08-07 06:18] LABS: Hematocrit (blood only) 32.2 % (37-47); Hemoglobin 10.7 g/dL (12.0-16.0); Mean Corpuscular Hgb Conc 33.2 g/dL (32-36); Mean Corpuscular Volume 85.6 fL (80-100); Mean Platelet Volume 9.4 fL (7.4-10.4); Platelet Count 350 K/uL (130-400); RDW Coefficient of Variation 14.8 % (11.5-14.5); RDW Standard Deviation 45.9 fL (36.4-46.3); Red Blood Count 3.76 M/uL (4.2-5.4); White Blood Count 15.67 K/uL (4.8-10.8)
[2018-08-07 06:52] LABS: BUN Creatinine Ratio 11.8 (10-20); Calcium 8.9 mg/dl (8.5-10.1); Creatinine Clr Calc Pharmacy 83.9 ml/min; Est GFR (African American) 62.3; Est GFR (Non-African American) 53.7; Potassium 3.5 mmol/L (3.5-5.1)
[2018-08-07 07:02] LABS: Albumin Globulin Ratio 0.8 (0.9-2); Bilirubin,Total 0.8 mg/dl (0.2-1); Globulin 3.8 gm/dl (2.5-4.0); Total Protein 6.8 gm/dl (6.4-8.2)
[2018-08-07] MEDS ORDERED: SODIUM CHLORIDE 0.9% 1000ML 1,000 ML IV ONE (07:57)
[2018-08-07] MEDS: INSULIN ASPART 100 UNITS/ML 3 ML PEN SC SCH ×4 (08:52→21:10)
[2018-08-07] MEDS: FERROUS GLUCONATE 324 MG TAB PO SCH ×2 (09:02→18:03)
[2018-08-07] MEDS: MULTIVITAMIN TAB PO SCH (09:02)
[2018-08-07] MEDS: DOCUSATE SODIUM 100 MG CAP PO SCH ×2 (09:02→21:01)
[2018-08-07] MEDS: DULOXETINE HCL 30 MG CAP PO SCH ×3 (09:02→21:01)
[2018-08-07] MEDS: LIOTHYRONINE SODIUM 5 MCG TAB PO SCH (09:03)
[2018-08-07] MEDS: OXYCODONE HCL 10 MG TABCR (OXYCONTIN) PO SCH ×2 (09:03→21:08)
[2018-08-07] MEDS: FLUTICASONE/SALMETEROL 250/50 (ADVAIR) 14 PUFF/1 INHALER INH SCH ×2 (09:03→21:01)
[2018-08-07] MEDS: ASCORBIC ACID 500 MG TAB PO SCH ×2 (09:04→18:03)
[2018-08-07] MEDS: ENOXAPARIN INJ 30 MG/0.3 ML SYR SQ SCH ×2 (09:05→21:01)
--- NOTE | 2018-08-07 09:34 | Orthopedic Progress Note ---
Date of Service August 07, 2018 Assessment & Plan (1) S/P total knee arthroplasty: POD # 2, s/p R TKA, Doing well as expected hyponatremia-improving Continue diabetic diet. GERARDO to right leg removed. Jonnie hosramón donned. Previna to remain on until first postop follow-up in 7 days. WBAT RLE. Discontinue knee immobilizer. Ambulate with a walker. Continue PT/OT this AM. Continue pain control with PO meds and ice. Continue elevation for swelling. DVT prophylaxis: TEDs and foot pumps, start Lovenox 30 mg subcutaneous twice a day 08/06/18 in a.m. and continue for 3 weeks, then switching to aspirin 325 by mouth twice a day for another 3 weeks. Continue with TEDs on operative leg for minimum of 2 weeks or until swelling returns to normal. Appreciate medicine input. Medicine ordered NS bolus with repeat labs today. If medically stable, plan to discharge later today per medicine approval. Plan to home with HHPT. Plan to repeat BMP on friday and have results sent to our office and PCP. New meds on DC to include oxycodone, oxycontin (for another 2 days), vit C, ferrous sulfate, lovenox. F/U in office scheduled for 3-20 at 11:15. Subjective Patient in chair. Finished her breakfast. Pain improved with oxycontin q 12hrs. Denies fever,chills, sweats, chest pain, shortness of breath, nausea, vomiting. Had PT yesterday without complaints. Ordered bolus of normal saline for this AM. Sodium improved from 128 yesterday to 130 this am. Hoping to go home today with home health PT. Physical Exam Vital Signs (Past 24 Hours): Last Vital Signs Temp 36.9 C 08/07/18 06:55 Pulse 104 H 08/07/18 06:55 Resp 14 08/07/18 06:55 BP 136/83 08/07/18 06:55 Pulse Ox 93 08/07/18 06:55 Physical Exam: NO acute distress. A and O x 3. Sitting comfortably in chair with right leg elevated. Right knee previna intact. NO drainage noted. No redness to surrounding tissue. Quad intact. B LE NV intact with palpable DP and PT pulses. Neg homans and calves soft. Brisk capillary refill. Sensation intact to light touch. 5/5 EHL, TA, gastroc. R LE with 1+ edema. Results & Data Laboratory Results 08/07/18 08/07/18 08/07/18 Range/Units 08:22 05:52 05:52 WBC 15.67 H (4.8-10.8) K/uL RBC 3.76 L (4.2-5.4) M/uL Hgb 10.7 L (12.0-16.0) g/dL Hct 32.2 L (37-47) % MCV 85.6 (80-100) fL MCH 28.5 (25-34) pg MCHC 33.2 (32-36) g/dL RDW Std Deviation 45.9 (36.4-46.3) fL RDW Coeff of Ash 14.8 H (11.5-14.5) % Plt Count 350 (130-400) K/uL MPV 9.4 (7.4-10.4) fL Sodium 130 L (136-145) mmol/L Potassium 3.5 (3.5-5.1) mmol/L Chloride 94 L (98-107) mmol/L Carbon Dioxide 24 (21-32) mmol/L Anion Gap 12.0 H (3-11) BUN 14 (7-18) mg/dl Creatinine 1.16 (0.6-1.2) mg/dl Est Cr Clr Drug Dosing 83.9 ml/min Est GFR ( Amer) 62.3 Est GFR (Non-Af Amer) 53.7 BUN/Creatinine Ratio 11.8 (10-20) Glucose 159 H (70-99) mg/dl POC Glucose 153 H (70-99) Osmolality Calcium 8.9 (8.5-10.1) mg/dl Total Bilirubin 0.8 (0.2-1) mg/dl AST 32 (15-37) U/L ALT 27 (12-78) U/L Alkaline Phosphatase 111 (45-117) U/L Total Protein 6.8 (6.4-8.2) gm/dl Albumin 3.0 L (3.4-5.0) gm/dl Globulin 3.8 (2.5-4.0) gm/dl Albumin/Globulin Ratio 0.8 L (0.9-2) TSH 1.670 (0.300-4.500) uIu/ml Urine Osmolality Ur Random Sodium mmol/L 08/06/18 08/06/18 08/06/18 Range/Units 20:34 17:14 15:58 WBC (4.8-10.8) K/uL RBC (4.2-5.4) M/uL Hgb (12.0-16.0) g/dL Hct (37-47) % MCV (80-100) fL MCH (25-34) pg MCHC (32-36) g/dL RDW Std Deviation (36.4-46.3) fL RDW Coeff of Ash (11.5-14.5) % Plt Count (130-400) K/uL MPV (7.4-10.4) fL Sodium (136-145) mmol/L Potassium (3.5-5.1) mmol/L Chloride (98-107) mmol/L Carbon Dioxide (21-32) mmol/L Anion Gap (3-11) BUN (7-18) mg/dl Creatinine (0.6-1.2) mg/dl Est Cr Clr Drug Dosing ml/min Est GFR ( Amer) Est GFR (Non-Af Amer) BUN/Creatinine Ratio (10-20) Glucose (70-99) mg/dl POC Glucose 166 H 115 H (70-99) Osmolality Calcium (8.5-10.1) mg/dl Total Bilirubin (0.2-1) mg/dl AST (15-37) U/L ALT (12-78) U/L Alkaline Phosphatase (45-117) U/L Total Protein (6.4-8.2) gm/dl Albumin (3.4-5.0) gm/dl Globulin (2.5-4.0) gm/dl Albumin/Globulin Ratio (0.9-2) TSH (0.300-4.500) uIu/ml Urine Osmolality Ur Random Sodium 7 mmol/L 08/06/18 08/06/18 08/06/18 Range/Units 15:58 11:58 09:32 WBC (4.8-10.8) K/uL RBC (4.2-5.4) M/uL Hgb (12.0-16.0) g/dL Hct (37-47) % MCV (80-100) fL MCH (25-34) pg MCHC (32-36) g/dL RDW Std Deviation (36.4-46.3) fL RDW Coeff of Ash (11.5-14.5) % Plt Count (130-400) K/uL MPV (7.4-10.4) fL Sodium (136-145) mmol/L Potassium (3.5-5.1) mmol/L Chloride (98-107) mmol/L Carbon Dioxide (21-32) mmol/L Anion Gap (3-11) BUN (7-18) mg/dl Creatinine (0.6-1.2) mg/dl Est Cr Clr Drug Dosing ml/min Est GFR ( Amer) Est GFR (Non-Af Amer) BUN/Creatinine Ratio (10-20) Glucose (70-99) mg/dl POC Glucose 139 H (70-99) Osmolality Pending Calcium (8.5-10.1) mg/dl Total Bilirubin (0.2-1) mg/dl AST (15-37) U/L ALT (12-78) U/L Alkaline Phosphatase (45-117) U/L Total Protein (6.4-8.2) gm/dl Albumin (3.4-5.0) gm/dl Globulin (2.5-4.0) gm/dl Albumin/Globulin Ratio (0.9-2) TSH (0.300-4.500) uIu/ml Urine Osmolality Pending Ur Random Sodium mmol/L
[2018-08-07 12:48] LABS: Hematocrit (blood only) 32.2 % (37-47); Hemoglobin 10.6 g/dL (12.0-16.0); Mean Corpuscular Hgb Conc 32.9 g/dL (32-36); Mean Corpuscular Volume 85.4 fL (80-100); Mean Platelet Volume 9.6 fL (7.4-10.4); Platelet Count 355 K/uL (130-400); RDW Coefficient of Variation 14.8 % (11.5-14.5); RDW Standard Deviation 46.2 fL (36.4-46.3); Red Blood Count 3.77 M/uL (4.2-5.4); White Blood Count 15.14 K/uL (4.8-10.8)
[2018-08-07 13:04] LABS: BUN Creatinine Ratio 13.4 (10-20); Calcium 8.6 mg/dl (8.5-10.1); Creatinine Clr Calc Pharmacy 97.3 ml/min; Est GFR (African American) 74.5; Est GFR (Non-African American) 64.3; Potassium 3.5 mmol/L (3.5-5.1)
--- NOTE | 2018-08-07 14:47 | Communication Note ---
Date of Service: August 07, 2018 Spoke to Vee Kim PA-C from medicine service. Patients Na dropped back down to 128 this afternoon. Patient was given 1L bolus saline this am. M edicine prefers to keep patient overnight for observation and to repeat BMP in AM. They will take over primary service. Nurse given verbal order to restrict water intake and supplement with electrolyte based PO fluids ie gatorade. From ortho standpoint she is safe to be DCd in AM. Discharge information completed and scripts are on chart. Dr Hairston is aware.
--- NOTE | 2018-08-07 18:02 | Hospitalist Progress Note ---
Date of Service August 07, 2018 Assessment & Plan (1) Knee pain, chronic: - S/p right TKA on 08/05; POD#2. - Pain control with Oxycontin 10 mg q12hr and Oxycodone prn. - DVT ppx with Lovenox 30 mg subQ BID x 3 weeks then Aspirin 325 mg BID x 3 weeks. (2) S/P total knee arthroplasty: - Management per ortho team. - Will f/u with ortho on 08/12/18. (3) Anemia: - Hemoglobin decreased to 10.6 post op -- likely related to intra op bleeding and dilutional. - Ferrous gluconate BID. - Monitor levels qAM. (4) Hyponatremia: - Na level remains decreased, was 130 then trended down to 128. - Urine sodium was decreased -- likely dehydration. - Received NS bolus this morning. - Will monitor Na level over next 24 hours. (5) DM type 2 (diabetes mellitus, type 2): - Most recent A1C was 6.2 in July 2018. - Continue home Levemir 30 units qPM with SSI coverage. - Pharmacy consulted for glycemic management. - Holding home Victoza. (6) Thyroid disorder: - Continue home Cytomel 20 mcg qAM as prescribed. - TSH was 1.6. (7) Hypertension: - Continue home Amlodipine 5 mg qPM as prescribed. - BP has been well controlled. (8) Depression: - Continue home Cymbalta as prescribed. (9) Overactive bladder: - Continue home Vesicare -- will need to bring from home. (10) GERD (gastroesophageal reflux disease): - PPI qAM. (11) Migraine: - Imitrex prn. (12) ABIOLA (obstructive sleep apnea): - Use CPAP qhs. (13) Asthma: - Continue home Advair BID with Xopenex prn. (14) Obesity: - BMI 55. Encourage weight loss and exercise. (15) DVT prophylaxis: - Per ortho team. Dispo: Transfer to hospitalist service, discharge likely on 08/07/18 if pt. is medically stable. 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 is doing well post op today. Denies significant pain. Denies chest pain, SOB. Is passing gas but has not had a BM. Will keep inpatient over next 24 hours due to lab work abnormalities. Review of Systems All systems reviewed & are unremarkable except as noted in HPI & below Constitutional: no fever, no chills, no fatigue and no weakness Respiratory: no cough and no dyspnea Cardiovascular: no chest pain, no palpitations, no syncope and no edema Gastrointestinal: + constipation; no abdominal pain and no nausea Genitourinary (Female): no difficulty urinating Musculoskeletal: + joint pain; no back pain Allergy / Immunological: no rash Physical Exam Vital Signs (Past 24 Hours): Last Vital Signs Temp 37.2 C 08/07/18 16:18 Pulse 98 H 08/07/18 16:18 Resp 18 08/07/18 16:18 BP 116/74 08/07/18 16:18 Pulse Ox 98 08/07/18 16:18 Physical Exam: General: Obese female, in no acute distress. HEENT: NC/AT; PERRLA with EOMI; [place] conjunctiva, MMM. Neck: Supple and nontender Cardiac: RRR Lungs: CTA bilaterally Abdomen: Bowel normoactive X 4; Nontender to palpation Extremities: Warm. No edema present. Dressing in place over right knee. Neuro: No focal weakness Skin: No rash Results & Data Laboratory Results 08/07/18 08/07/18 08/07/18 Range/Units 12:13 12:04 12:04 WBC 15.14 H (4.8-10.8) K/uL RBC 3.77 L (4.2-5.4) M/uL Hgb 10.6 L (12.0-16.0) g/dL Hct 32.2 L (37-47) % MCV 85.4 (80-100) fL MCH 28.1 (25-34) pg MCHC 32.9 (32-36) g/dL RDW Std Deviation 46.2 (36.4-46.3) fL RDW Coeff of Ash 14.8 H (11.5-14.5) % Plt Count 355 (130-400) K/uL MPV 9.6 (7.4-10.4) fL Sodium 128 L (136-145) mmol/L Potassium 3.5 (3.5-5.1) mmol/L Chloride 97 L (98-107) mmol/L Carbon Dioxide 24 (21-32) mmol/L Anion Gap 7.0 (3-11) BUN 13 (7-18) mg/dl Creatinine 1.00 (0.6-1.2) mg/dl Est Cr Clr Drug Dosing 97.3 ml/min Est GFR ( Amer) 74.5 Est GFR (Non-Af Amer) 64.3 BUN/Creatinine Ratio 13.4 (10-20) Glucose 103 H (70-99) mg/dl POC Glucose 109 H (70-99) Osmolality Calcium 8.6 (8.5-10.1) mg/dl Total Bilirubin (0.2-1) mg/dl AST (15-37) U/L ALT (12-78) U/L Alkaline Phosphatase (45-117) U/L Total Protein (6.4-8.2) gm/dl Albumin (3.4-5.0) gm/dl Globulin (2.5-4.0) gm/dl Albumin/Globulin Ratio (0.9-2) TSH (0.300-4.500) uIu/ml 08/07/18 08/07/18 08/07/18 Range/Units 08:22 05:52 05:52 WBC 15.67 H (4.8-10.8) K/uL RBC 3.76 L (4.2-5.4) M/uL Hgb 10.7 L (12.0-16.0) g/dL Hct 32.2 L (37-47) % MCV 85.6 (80-100) fL MCH 28.5 (25-34) pg MCHC 33.2 (32-36) g/dL RDW Std Deviation 45.9 (36.4-46.3) fL RDW Coeff of Ash 14.8 H (11.5-14.5) % Plt Count 350 (130-400) K/uL MPV 9.4 (7.4-10.4) fL Sodium 130 L (136-145) mmol/L Potassium 3.5 (3.5-5.1) mmol/L Chloride 94 L (98-107) mmol/L Carbon Dioxide 24 (21-32) mmol/L Anion Gap 12.0 H (3-11) BUN 14 (7-18) mg/dl Creatinine 1.16 (0.6-1.2) mg/dl Est Cr Clr Drug Dosing 83.9 ml/min Est GFR ( Amer) 62.3 Est GFR (Non-Af Amer) 53.7 BUN/Creatinine Ratio 11.8 (10-20) Glucose 159 H (70-99) mg/dl POC Glucose 153 H (70-99) Osmolality Calcium 8.9 (8.5-10.1) mg/dl Total Bilirubin 0.8 (0.2-1) mg/dl AST 32 (15-37) U/L ALT 27 (12-78) U/L Alkaline Phosphatase 111 (45-117) U/L Total Protein 6.8 (6.4-8.2) gm/dl Albumin 3.0 L (3.4-5.0) gm/dl Globulin 3.8 (2.5-4.0) gm/dl Albumin/Globulin Ratio 0.8 L (0.9-2) TSH 1.670 (0.300-4.500) uIu/ml 08/06/18 08/06/18 Range/Units 20:34 09:32 WBC (4.8-10.8) K/uL RBC (4.2-5.4) M/uL Hgb (12.0-16.0) g/dL Hct (37-47) % MCV (80-100) fL MCH (25-34) pg MCHC (32-36) g/dL RDW Std Deviation (36.4-46.3) fL RDW Coeff of Ash (11.5-14.5) % Plt Count (130-400) K/uL MPV (7.4-10.4) fL Sodium (136-145) mmol/L Potassium (3.5-5.1) mmol/L Chloride (98-107) mmol/L Carbon Dioxide (21-32) mmol/L Anion Gap (3-11) BUN (7-18) mg/dl Creatinine (0.6-1.2) mg/dl Est Cr Clr Drug Dosing ml/min Est GFR ( Amer) Est GFR (Non-Af Amer) BUN/Creatinine Ratio (10-20) Glucose (70-99) mg/dl POC Glucose 166 H (70-99) Osmolality Pending Calcium (8.5-10.1) mg/dl Total Bilirubin (0.2-1) mg/dl AST (15-37) U/L ALT (12-78) U/L Alkaline Phosphatase (45-117) U/L Total Protein (6.4-8.2) gm/dl Albumin (3.4-5.0) gm/dl Globulin (2.5-4.0) gm/dl Albumin/Globulin Ratio (0.9-2) TSH (0.300-4.500) uIu/ml
[2018-08-07] MEDS: SENNA 8.6 MG TAB PO SCH (21:01)
[2018-08-07] MEDS: AMLODIPINE BESYLATE 5 MG TAB PO SCH (21:01)
[2018-08-07] MEDS: PANTOprazole 40 MG TAB PO SCH (21:01)
[2018-08-07] MEDS: INSULIN GLARGINE SOLOSTAR 100 UNITS/ML 3 ML PEN SC SCH (21:10)
[2018-08-08 06:20] LABS: Hematocrit (blood only) 28.9 % (37-47); Hemoglobin 9.6 g/dL (12.0-16.0); Mean Corpuscular Hgb Conc 33.2 g/dL (32-36); Mean Platelet Volume 9.7 fL (7.4-10.4); Platelet Count 337 K/uL (130-400); RDW Coefficient of Variation 15.3 % (11.5-14.5); RDW Standard Deviation 47.7 fL (36.4-46.3); Red Blood Count 3.36 M/uL (4.2-5.4); White Blood Count 11.62 K/uL (4.8-10.8)
[2018-08-08 06:55] LABS: BUN Creatinine Ratio 12.8 (10-20); Calcium 8.6 mg/dl (8.5-10.1); Creatinine Clr Calc Pharmacy 111.8 ml/min; Est GFR (African American) 88.2; Est GFR (Non-African American) 76.1; Magnesium 2.1 mg/dl (1.8-2.4); Potassium 3.7 mmol/L (3.5-5.1)
[2018-08-08] MEDS: DOCUSATE SODIUM 100 MG CAP PO SCH (09:26)
[2018-08-08] MEDS: FERROUS GLUCONATE 324 MG TAB PO SCH (09:26)
[2018-08-08] MEDS: ASCORBIC ACID 500 MG TAB PO SCH (09:26)
[2018-08-08] MEDS: OXYCODONE HCL 10 MG TABCR (OXYCONTIN) PO SCH (09:26)
[2018-08-08] MEDS: DULOXETINE HCL 30 MG CAP PO SCH (09:26)
[2018-08-08] MEDS: MULTIVITAMIN TAB PO SCH (09:26)
[2018-08-08] MEDS: ENOXAPARIN INJ 30 MG/0.3 ML SYR SQ SCH (09:27)
[2018-08-08] MEDS: LIOTHYRONINE SODIUM 5 MCG TAB PO SCH (09:27)
[2018-08-08] MEDS: FLUTICASONE/SALMETEROL 250/50 (ADVAIR) 14 PUFF/1 INHALER INH SCH (09:27)
[2018-08-08] MEDS: INSULIN ASPART 100 UNITS/ML 3 ML PEN SC SCH (09:31)
--- NOTE | 2018-08-08 12:54 | Discharge Summary ---
Date of Service August 08, 2018 Admission HPI Per Admitting Provider Per orthopedic notes. Admission Exam Per Admitting Provider Not documented in H&P. Principal Diagnosis Chronic Knee Pain s/p right total knee arthroplasty Discharge Exam General: Obese female, in no acute distress. HEENT: NC/AT; PERRLA with EOMI; [place] conjunctiva, MMM. Neck: Supple and nontender Cardiac: RRR Lungs: CTA bilaterally Abdomen: Bowel normoactive X 4; Nontender to palpation Extremities: Warm. No edema present. Dressing in place over right knee. Neuro: No focal weakness Skin: No rash Discharge Data Allergies Allergy/AdvReac Type Severity Reaction Status Date / Time lisinopril Allergy Severe ANGIOEDEMA Verified 08/05/18 05:48 amoxicillin Allergy Intermediate HIVES Verified 08/05/18 05:48 metformin Allergy Intermediate migraines Verified 08/05/18 05:48 Sulfa (Sulfonamide Allergy Unknown HIVES Verified 08/05/18 06:11 Antibiotics) Consultations 08/05/18 12:35 Consult Case Management - Discharge Planning Routine Consult Hospitalist Routine Procedures Performed Operation Date: 08/05/18 07:00 Actual Procedures p Right Total Knee Arthroplasty(Right) - Jaime Hairston MD Ordered Studies 08/05/18 05:00 US - OR guided needle placemen Routine 08/05/18 Knee Xray Hospital Course (1) Knee pain, chronic: S/p right TKA on 3; POD#3 on day of discharge. Pt. received Oxycontin and Oxycodone for pain relief. Was doing well post op, will be discharged home with home health services. DVT ppx with Lovenox 30 mg BID x 3 weeks then Aspirin 325 mg BID x 3 weeks. (2) S/P total knee arthroplasty: Management per ortho team. Will f/u with ortho on 08/12/18. (3) Anemia: Hemoglobin trended down post op due to intra op bleeding. Pt. was placed on ferrous gluconate BID at discharge. (4) Hyponatremia: Pt. had acute drop in Na level POD#1, Na level was 128. Was likely related to hypovolemic hyponatremia. She received a 1L NS bolus on 315, POD#2, due to ongoing hyponatremia. Na level trended back up to baseline the following day and she was stable for discharge to home. Does not require further labwork after discharge. Was encouraged to increase PO intake. (5) DM type 2 (diabetes mellitus, type 2): Most recent A1C was 6.2 in July 2018. Pharmacy was consulted for glycemic management during this admission. Will resume home long acting insulin and Nithin toza at discharge. (6) Thyroid disorder: Continued home Cytomel 20 mcg qAM as prescribed. TSH was 1.6. (7) Hypertension: Continued home Amlodipine 5 mg qPM as prescribed. (8) Depression: Continued home Cymbalta as prescribed. (9) Overactive bladder: Continued home Vesicare. (10) GERD (gastroesophageal reflux disease): PPI qAM. (11) Migraine: Imitrex prn -- pt. did not require medication. (12) ABIOLA (obstructive sleep apnea): CPAP ordered qhs. (13) Asthma: Continued home Advair BID with Xopenex prn. (14) Obesity: BMI 55. Encouraged weight loss and exercise. (15) DVT prophylaxis: Per ortho team. Pt. was transferred to the hospitalist service on 08/07/18 due to ongoing hyponatremia; she was stable for discharge to home on 08/08/18. Total Time Total Time Spent Total Time Spent (In Minutes): >30 minutes Total Time Includes: Examination of the Patient, Discharge Planning, Medication Reconciliation, Communication With Other Providers and Other Discharge Plan Discharge Items Patient Disposition: Home - Home Health Services Reason For Visit: Osteoarthritis Knee Right Discharge Diagnosis: Osteoarthritis Right Knee; S/P Right Total Knee Replacement Condition: Good Discharge Goals: Decrease discomfort, Improve function, Increase independence and Therapeutic intervention Activity: As commented below Bathing: Keep incision dry Bathing Comment: Keep Previna wound vac on, clean, and dry until f/u appointment Sexual Activity: When tolerated Exercise Comment: As per physical therapy protocol Driving/Machine Use Comment: No driving until off of narcotics, not using walker. At least 2weeks. Weightbearing: Right weightbearing Weightbearing Comment: as tolerated with walker. immobilizer for first 48 or good quad control. Non-emergency contact: Primary Care Provider and Surgeon Call non-emergency contact if: you have any medication questions, your symptoms worsen, your pain is not controlled, your pain is worsening, your pain is unusual for you, your pain is concerning for you, your temperature is above 101.5, your wound has increased redness, your wound has increased drainage and your wound pain has increased Follow-up/Referrals: Josse García, [Primary Care Provider] - 08/12/18 11:15 am (appointment with Azalea Tobar PA-C for previna removal. Please arrive at 11am) Diet: Carb Consistent or DM2 Addtl Provider Instructions: Post-operative Instructions Pain Expect to be in a fair amount of pain after surgery. Remember, our goal is not to eliminate your pain, but to make it tolerable. It is a good idea to stay ahead of your pain by taking the medications you were prescribed once you get home. Typically, the pain starts improving 3-7 days after surgery. You should start weaning off the narcotic pain medication (oxycodone and oxycontin) as soon as your pain improves. Please call our office if your pain is not adequately controlled. Ice Ice your operative site at least 5 times a day for 15-30 minutes at a time. Make sure you have a thin cloth between the ice or cooling unit and your skin to prevent angeles bite. This is especially important if you received a nerve block. Continue icing your operative site for the first 5-7 days after surgery, then as needed. Diet/Nausea/Vomiting Start by drinking clear liquids and eating crackers. If you can tolerate this, then you may resume your normal diet. If you feel nauseated or vomit, take Zofran/ondansetron (if prescribed). Please call our office if you have intractable nausea or vomiting, or, if after hours, you may go to the Emergency Room for help. Constipation Constipation is a common side effect of narcotic pain medication. If you have not had a bowel movement within 2 days after surgery, we recommend purchasing an over the counter laxative such as Milk of Magnesia, Dulcolax, or Miralax from a local pharmacy, and taking it as instructed. Call our clinic if any questions. Braces Knee immobilizer when ambulating can be discontinued after 48hrs or when demonstrates good quad control. Nerve block The anesthesia team sometimes places a nerve block to help with post-operative pain control. This results in significant numbness and inability to move the extremity. The nerve block usually wears off in 8-12 hours, but sometimes can last up to 24 hours. Please call our office if you are still unable to move your extremity after 24 hours, unless you received a pain pump to take home. Nerve blocks typically wear off quickly, so start taking pain medication as soon as you start feeling soreness near your surgical site. Weight bearing and Range of Motion. Weight bearing as tolerated with walker. (knee immobilizer first 48hr or good quad control). No restrictions with range of motion. Important to do work on these exercises as instructed. Physical therapy Initially you will have home health physical therapy. At your 2wk follow-up appointment we will discuss outpatient therapy. Important to work on you exercises on a daily basis as intructed. Wound care and showering We will inspect your wound at your first post-operative visit, and may do a dressing change at that time. Most patients will be in a water-proof dressing that is removed 14 days after surgery. It is normal to see some dried blood on the dressing. Do not remove your dressing, paper strips or sutures yourself unless you are given permission. Showering is allowed the day after surgery. Do not scrub or remove any dressings. The wound should not be submerged underwater (i.e. in a bathtub or pool) until 4 weeks after surgery. You have a previna wound vac on. This should remain on for the first 7 days until removed in the office. Please keep dry. May shower over as long as covered. Please unhook wound vac when doing so. SHAKIR stockings If you were given white stockings, these are to be worn at all times except to shower and sleep (on both legs) for the first 2 weeks after surgery. Driving You may not drive while taking narcotic pain medication or while in a cast, splint, sling or brace or using a walker. You, the patient, need to make the final determination about when you are safe to drive, however, the earliest you may consider driving after surgery is 2- 4weeks. We will discuss this at your 2wk follow-up appointment. Return to Work Your return to work depends on what surgery was done and what type of work you do. Please bring any paperwork your employer needs completed to your first post-operative visit. Also, bring a description of your job duties, as this helps us to understand what risks you may face at work. Travel Avoid long distance travel (greater than 1 hour) in airplanes and cars for the first 4-6 weeks after surgery. If you must, please let us know to discuss. Follow-up You should have a follow-up appointment already scheduled for 08-12-18 at 11:15 with Azalea Tobar PA-C for previna wound vac removal. When to call the office It is normal to have swelling and bruising in the limb that was operated on. This will improve with time. It is also normal to have fevers for few days after surgery. Reasons you should call your doctor include: Uncontrolled pain; Nausea, vomiting, or constipation that does not improve with medication; Fevers over 101.5, chills, sweats; increased drainage or bleeding from the wound; Foul odor; Spreading areas of redness; Any other concerns Office phone number is [phone]. New Medications: You will be provided with these prescriptions upon discharge to take in addition to your home medications. 1)Oxycodone (for breatkthrough pain every 4-6hrs prn) Oxycontin (2 days supply, long acting pain medication) 2)Lovenox (to prevent blood clots) 3)Vitamin C (help immune system) 4)Ferrous sulfate (iron) (prevent anemia) Prescriptions: New ascorbic acid (vitamin C) [Vitamin C] 500 mg Tablet 500 mg PO BIDM Qty: 28 RF: 0 enoxaparin [Lovenox] 30 mg/0.3 mL Syringe 30 mg subcut Q12 19 Days Qty: 38 RF: 0 ferrous gluconate 324 mg (38 mg iron) Tablet 324 mg PO BIDM 14 Days Qty: 28 RF: 0 oxycodone 5 mg Tablet 5 - 10 mg PO Q4H PRN (Reason: pain) Qty: 30 RF: 0 Continued fluticasone propion-salmeterol [Advair Diskus] 250-50 mcg/dose Blister With Device 1 inh INHALATION BID RF: 0 Mirena 20 mcg/24 hours (5 yrs) 52 mg Intrauterine Device 20 mcg INTRAUTERINE DAILY RF: 0 sumatriptan succinate 50 mg Tablet 1 tab PO DAILY PRN (Reason: Migraine Headache) RF: 0 amlodipine 5 mg Tablet 5 mg PO QPM RF: 0 liothyronine 5 mcg Tablet 20 mcg PO QAM RF: 0 pantoprazole 40 mg Tablet,Delayed Release (Dr/Ec) 40 mg PO QPM RF: 0 duloxetine 30 mg Capsule,Delayed Release(Dr/Ec) 30 mg PO TID RF: 0 Vesicare 10 mg Tablet 10 mg PO QPM RF: 0 levalbuterol tartrate [Xopenex HFA] 45 mcg/actuation Hfa Aerosol Inhaler 2 inh INHALATION Q6H PRN (Reason: Wheezing) RF: 0 Victoza 3-Samy 0.6 mg/0.1 mL (18 mg/3 mL) Pen Injector 0.6 mg SUBCUT QPM RF: 0 calcium carb and citrate-vitD3 [Citracal + D Slow Release] 600 mg calcium- 500 unit Tablet Extended Release 1 tab PO QAM RF: 0 Levemir FlexTouch U-100 Insuln 30 units SC QPM RF: 0 Discontinued naproxen sodium 220 mg Tablet 3 tab PO BID PRN (Reason: Pain) RF: 0 glucosamine-chondroitin [Cosamin DS] 500-400 mg Tablet 2 tab PO QPM RF: 0 Stand-Alone Forms: [employer], [facility] [employer]/Other Patient Handouts: Replacement Knee Discharge Orders: Discharge Order (Routine); Ordered 08/08/18 Ordered By: Vee Kim Admission Data Admit Date/Time: 08/05/18 12:08 Attending Provider: Sammie Abbott Admit Provider: Jaime Hairston Primary Care Provider: Josse García Other Providers: Nidia Vee Service: Surgical Services Other Interventions: Discharge Summary Assessment (RN) Last Done: 08/08/18 09:47 Pending Studies at Discharge: No DC Date/Time DO NOT enter until pt leaves facility: 08/08/18 11:06 Supervising Physician Co-Signing Physician Notes PA Supervision Note: I personally saw and examined the patient. I verified all tamez points and agree with TAMIA Kim with the following exceptions and/or additions: Pt doing very well, denies any problems. Denies CP or SOB, no headache or nausea. Na+ back to 138 and normal Vitals reviewed morbidly obese, NAD, AAOx3 RRR no mgr CTAB no wcr Rt knee in dressing c/d/i, no edema legs bilat 53 yo female with TKA, doing well post-op, hyponatremia secondary to hypovolemia, improved with NS hydration, stable for dc to home
== END 2018-08-08 11:06 | disposition home health service (06) | DRG 470 ==
LOC: ASU 05:02 → SUATTDRO 12:08 → 3E 12:08
DX: I10 Essential (primary) hypertension; D64.9 Anemia, unspecified; Z79.899 Other long term (current) drug therapy; E07.9 Disorder of thyroid, unspecified; Z68.43 Body mass index [BMI] 50.0-59.9, adult; E11.9 Type 2 diabetes mellitus without complications; J45.909 Unspecified asthma, uncomplicated; E87.1 Hypo-osmolality and hyponatremia; G47.33 Obstructive sleep apnea (adult) (pediatric); M17.11 Unilateral primary osteoarthritis, right knee; K21.9 Gastro-esophageal reflux disease without esophagitis; F32.9 Major depressive disorder, single episode, unspecified; E66.9 Obesity, unspecified